=== PATIENT | female | born 1980 | race Caucasian/White ===

== ENCOUNTER 2024-01-16 15:17 | Outpatient (CLI) | payer OTHER, SELFPAY ==
--- NOTE | ~2024-01-16 | MM_ITS ---
EXAMINATION: MM screening santosh BI w kevin HISTORY: Screening TECHNIQUE: Craniocaudal and mediolateral oblique 3-D tomosynthesis images were obtained and synthetic 2-D images were generated. CAD analysis was submitted and interpreted. COMPARISON: No prior mammogram is available for comparison at this institution. BREAST PARENCHYMAL COMPOSITION: Dense: The breasts are extremely dense, which lowers the sensitivity of mammography. FINDINGS: There is no evidence of suspicious mass, calcification, or architectural distortion to sugg est malignancy in either breast. There has been no suspicious interval change. IMPRESSION: 1. No mammographic evidence of malignancy. 2. Recommend routine screening mammography in one year. BI-RADS Category 1: Negative Reviewed, dictated and finalized at location [facility]. [facility]
== END 2024-01-16 15:18 | disposition home or self-care (01) ==
LOC: ANHIMG 15:19
PROVIDERS: Visit Provider Obstetrics & Gynecology
DX: Z12.31 Encounter for screening mammogram for malignant neoplasm of breast (principal)
CPT/HCPCS: 77063; 77067

== ENCOUNTER 2025-01-20 10:46 | Outpatient (CLI) | payer OTHER, SELFPAY ==
--- OUTSIDE RECORDS SUMMARY | 2025-01-19 09:13 | XMS_ITS | Encounter Summary ---
Author Organization [facility] Address [address] [place] [address] Care Team Providers Care Opal Miner Name Role Phone [facility] Dur[facility] Primary Care Provider Reason for Visit * Evaluate & Treat (Routine) - Authorized Specialty Diagnoses / Procedures Referred By Contac t Referred To Contact Physical Therapy Diagnoses Impingement of right shoulder Rotator cuff tendonitis, right Laureano Avilez MD [address] [address] Phone: tel: fax: [facility] PT [address] [place] [address] Phone: tel: Referral ID Status Reason Start Date Expiration Date Visits Requested Visits Authorized [id number] Authorized Specialty Services Required 08/01/2024 08/01/2025 20 20 Encounter Details Date Type Department Care Team (Latest Contact Info) Description 01/19/2025 9:13 AM MRI TECHNICIAN - 01/19/2025 11:59 PM [facility] Hospital Encounter [facility] PT [address] [place] [address] Laureano Avilez MD [address] [phone] Colby Campuzano, PT Orthopedics Discharge Disposition: Home or Self Care Social History Tobacco Use Types Packs/Day Years Used Date Smoking Tobacco: Never Smokeless Tobacco: Never Alcohol Use Standard Drinks/Week Comments Never 0 (1 standard drink = 0.6 oz pur e alcohol) PHQ-2 Answer Date Recorded Patient Health Questionnaire-2 Score 6 10/07/2024 Education Answer Date Recorded What is the highest level of school you have completed or the highest degree you have received? Bachelor's degree (e.g., BA, AB, BS) 10/07/2024 Comments Unknown Sex and Gender Information Value Date Recorded Sex Assigned at Not on file Legal Sex Female 1:50 PM CDT Gender Identity Not on file Sexual Orientation Not on file Occupation Industry Job Start Date Job End Date unemployed Not on file Not on file Not on file documented as of this encounter Medications at Time of Discharge albuterol HFA (Proventil; Ventolin; Proair) 108 (90 Base) MCG/ACT inhaler Inhale 2 (two) puffs by mouth every 6 hours as needed 6.7 g 1 10/07/2024 Ascorbic Acid (Vitamin C) 500 MG azelastine (Astelin) 0.1 % nasal sprayIndications:A llergic rhinitis, unspecified seasonality, unspecified trigger [place] 1 (one) spray into each nostril 2 times daily as needed 30 mL 2 11/28/2024 B Complex-C (SUPER B COMPLEX PO) Super B Complex Calcium Carb-Cholecalcifer ol (Calcium 600+D) 600-10 MG-MCG Take 1 (one) tablet by mouth 2 times daily clindamycin (Cleocin) 1 % lotionIndications: Acne vulgaris Apply to affected area on face and trunk daily. 30 day supply. 60 mL 3 01/06/2025 fexofenadine (Belkis) 180 MG tabletIndications: Chronic urticaria Take 1 (one) tablet by mouth once daily 31 tablet 4 11/28/2024 fluticasone propionate (Flonase) 50 MCG/ACT nasal sprayIndications:A llergic rhinitis, unspecified seasonality, unspecified trigger,Nonallergi c vasomotor rhinitis [place] 2 (two) sprays into each nostril once daily 16 g 5 11/28/2024 hydrocortisone (Hytone) 2.5 % ointmentIndication s:Other eczema Apply to affected area 2 times daily 30 g 3 11/28/2024 lamoTRIgine (LaMICtal) 200 MG tablet 1 (one) tablet Lo Loestrin Fe 1 MG-10 MCG / 10 MCG tablet 09/05/2022 Magnesium Glycinate 100 MG CAPS minoxidil (Loniten) 2.5 MG tabletIndications: Female pattern hair loss Take one half of a pill daily. 90 day supply 45 tablet 3 01/06/2025 mometasone-formote rol (Dulera) 100-5 MCG/ACT inhalerIndications :Mild persistent asthma without complication (HCC) Inhale 2 (two) puffs by mouth as directed Use the Dulera 2 puffs twice a day regularly and 1 puffs as needed per the asthma action plan and before exertion up to 12 total puffs a day. The Dulera is both his controller and reliever inhaler (SMART Therapy) 8.8 g 2 11/28/2024 [place]-3 Krill Oil 500 MG propranolol (Inderal) 10 MG tablet Take 1 (one) tablet by mouth 2 times daily as needed 12/23/2024 QUEtiapine (SEROquel) 25 MG tablet TAKE 1 TABLET BY MOUTH ONCE DAILY AT BEDTIME NEEDED 12/23/2024 tretinoin (Retin-A) 0.025 % creamIndications:A cne vulgaris Pea sized amount to entire face at night. 30 days supply. 45 g 3 01/06/2025 Vraylar 1.5 MG capsule Take 1 (one) capsule by mouth at bedtime 10/21/2024 documented as of this encounter Progress Notes * Colby Campuzano, PT - 01/19/2025 9:36 AM CST [facility] Physical Medicine and Rehabilitation Outpatient Progress Note PATIENT NAME:Kathy Barajas DATE:01/19/2025 PROVIDER: [facility] - Orthopedics Cristi Frausto MD Mourad, Wassim, MD Diagnosis: Impingement of right shoulder [M25.811] - Primary Rotator cuff tendonitis, right [M75.81] Clinical Diagnosis: Pain, Tenderness, Decreased Rom, Strength, and Flexibility, Positive impingement tests, R shoulder. VISIT # 12 OF 17 (exp on 10/07) SUBJECTIVE: Pt continues to report increased pain in her R shoulder with reaching out to the side, backward and certain angles forward. Reports performing Hep with increased pain with the above motions; Reports difficulty putting deodorant on due to the pain and difficulty raising her arm. Patient voices pain level of 3 out of 10 at R shoulder. @ rest, 6-7 /10 with elevation In response to pain, therapy: provided education cold pack stretching OBJECTIVE: Tx: - Pt performed Upper body ergometer / arm bike with min resistance 3 mins Fwd, 3 mins Retro. - Pt reviewed / performed AArom on overhead pulleys for R shoulder flex and Scaption, 10 reps each,with cues. - Pt reviewed / performed self Prom / table stretches in sitting for R shoulder Flex and Scaption, 5-10 sec hold, 5 reps each, with cues, to be added to Hep; - Pt reviewed / performed wand AArom in supine for R shoulder Flex and ER / IR (90/90 position), 5 reps each with cues prn for hand placement to find the most comfortable position. - Interferential E-stim to R shoulder Hi/Low scan mode with intensity to tolerance (5-6) x 15 mins with Cpk in supine; Patient/Family Education Given: yes Pt advised to continue HEP, and PT, as tolerated and consult MDre:increased R shoulder pain and lack of progress in PT. Pt voiced understanding of all education provided; Need To Reassess: no ASSESSMENT/PROGRESS TOWARDS GOALS: Pt tolerated treatment with report of slightly decreased pain R shoulder post IFC / Cpk; Pt presents with increased pain and slightly decreased Rom and strength in her R shoulder. Pt advised to continue HEP, and PT, as tolerated and consult re:increased R shoulder pain and lack of progress in PT. Pt may benefit from further medical management in addition to continued PT for 5 authorized sessions remaining, per insurance; Response to treatment: good Plan: Cont PT 1x / week with Hep, per POC. Goals: Short Term Goals (to be met in 4 weeks) 1. Demonstrate improved posture and overhead body mechanics Met 2. Independent with home exercise program Met 3. Reports decreased pain level during functional activity of Reaching out to the side and backward 4. Increase shoulder range of motion: WFL Progressing 5. Increase shoulder strength: 1/3 MMT Grade 6. Increase scapular strength: 7. Other: 8. Other: Intermediate Goal: 1. At time of discharge, patient reports ability to return to functional activity of Lifting, Reaching, Driving, ADL's: Doing her hair, dressing, with decreased c/o; 2. Upon discharge, patient will show an improvement of 10 points on DASH. Treatment time: [id number] (Ex 2) [id number] (ESU,Cpk) TECHNICIAN documented in this encounter Plan of Treatment Upcoming Encounters Date Type Department Care Team (Late st Contact Info) Description 01/28/2025 9:30 AM MRI TECHNICIAN Appointment [facility] PT [address] [place] [phone] Laureano Avilez MD [address] [place] [phone] Colby Campuzano, PT 02/04/2025 9:30 AM MRI TECHNICIAN Appointment [facility] PT [address] [place] [phone] Laureano Avilez MD [address] [place] [phone] Colby Campuzano, PT 03/06/2025 11:00 AM MRI TECHNICIAN Office Visit [facility] - Allergy [address] [place] [address], [place] [phone] Jose Daniel Loya MD [address] [place] [address] 2L DIV OF ALLERGY/[place] [address] 03/13/2025 4:30 PM MRI TECHNICIAN Appointment [facility] MRI [address] [place] [phone] Susan Duran, SIDE SEAM ENVELOPE MACHINE OPERATOR-HANDLE ATTACHER [address] [place] [address] 2L DIV [place] [address] 07/16/2025 2:00 PM CDT Office Visit [facility] - Dermatology [address] [place] [address], [place] [phone] Judie Cote MD [address] [place] [address] 10/13/2025 10:30 AM CDT Office Visit [facility] - Internal Med [facility] [facility], [place] [address] Susan Duran APRN-MADELIN [address] [place] [address] 2L DIV OF [facility] [place] [address] 10/27/2025 9:00 AM CDT Office Visit [facility] - Ophthalmology [address] [place] [address], [place] [address] Daksha Montgomery OD [address] [place] [address] [address] [place] [phone] documented as of this encounter Visit Diagnoses Not on filedocumented in this encounter Care Teams Opal Miner Relationship Specialty Start Date End Date Susan Duran, GERMAINE-MADELIN [address] [place] [address] [address] DIV [place] [address] PCP - General Nurse Practitioner Family 10/25/22 documented as of this encounter
--- NOTE | ~2025-01-20 | MM_ITS ---
EXAMINATION: MM screening santosh BI w kevin HISTORY: Screening TECHNIQUE: Craniocaudal and mediolateral oblique 3-D tomosynthesis images were obtained and synthetic 2-D images were generated. CAD analysis was submitted and interpreted. COMPARISON: 01/16/2024 BREAST PARENCHYMAL COMPOSITION: Dense: The breasts are extremely dense, which lowers the sensitivity of mammography. FINDINGS: There is no evidence of suspicious mass, calcification, or architectural distortion to suggest malignancy in either breast. IMPRESSION: 1. No mammographic evidence of malignancy. 2. Recommend routine screening mammography in one year. BI-RADS Category 1: Negative Reviewed, dictated and finalized at location A. [facility]
--- OUTSIDE RECORDS SUMMARY | 2025-01-20 13:02 | XMS_ITS | Clinical Summary ---
Author Organization [facility] Address [address] [place] [address] Care Team Providers Care Olive Picker Name Role Phone Unavailable Primary Care Provider Unavailabl e Social History Tobacco Use Types Packs/Day Years Used Date Smoking Tobacco: Never Assessed Comments Unknown Sex and Gender Information Value Date Recorded Sex Assigned at Not on file Legal Sex Female 7:40 PM CDT Gender Identity Not on file Sexual Orientation Not on file Plan of Treatment Health Maintenance Due Date Last Done Comments Cervical Cancer Screening Pa p Smear (Age 30 to 64) Every 3 Years 1982 Annual Physical 1985 Hepatitis C 2000 DTaP, Tdap and Td Vaccines ( 1 - Tdap) 2001 Hepatitis B Vaccines (1 of 3 - 19+ 3-dose series) 2001 HPV Vaccines (1 - 3-dose SCD M series) 2009 Cervical Cancer Screening Pa p with HPV Testing (Age 30 to 64) Every 5 Years 2012 Cervical Cancer Screening with HPV 2012 Mammogram Screening 2022 COVID-19 Vaccine (2024-2 6 season) 2024 Influenza Adult (#1) 2024 Hepatitis A Vaccines Aged Out No long er eligible based on patient's age to complete this topic Meningococcal B Vaccine Aged Out No l onger eligible based on patient's age to complete this topic Meningococcal Vaccine Aged Out No meghan christina eligible based on patient's age to complete this topic Pneumococcal Vaccine: Pediat rics (0 to 5 Years) and At-Risk Patients (6 to 49 Years) Aged Out No longer eligible b ased on patient's age to complete this topic RSV Immunizations Under 20 Months Aged Out No longer eligible based on patient's age to complete this topic
--- OUTSIDE RECORDS SUMMARY | 2025-01-20 13:02 | XMS_ITS | Clinical Summary ---
Author Organization [facility] Address [address] [place] [address] Care Team Providers Care Taxicab Dispatcher Name Role Phone Susan Duran APRN-GARBAGE TRUCK DISPATCHER Primary Care Provider Source Comments [facility],non-owned Affiliates and Associated Physician Practices is amultiple site organization consisting of ambulatory clinics and hospital sitesin [place], [place], [place] and [place]. This disclosure is being madepursuant to the Care Everywhere program and may not contain all information available regarding this patient. Last updated 17.[facility] Allergies Active Allergy Reactions Criticality Noted Date Comments Diary Product [Other] Diarrhea,GI Discomfort Medium Penicillins Swelling,Anaphylaxis High 01/20/2014 Soybean Allergy Swelling 01/20/2014 Tomato Urticaria,Unknown Medium 01/20/2014 Medications * This document contains information received from the source organization and may not represent a complete record from that organization. * Be aware that medications may not be up to date on this document. Alwaysverify current medications with the patient. [place]-3 Krill Oil 500 MG Active Calcium Carb-Cholecalcif nathalie (Calcium 600+D) 600-10 MG-MCG Take 1 (one) tablet by mouth 2 times daily Active Ascorbic Acid (Vitamin C) 500 MG Active B Complex-C (SUPER B COMPLEX PO) Super B Complex Acti ve Magnesium Glycinate 100 MG CAPS Active Lo Loestrin Fe 1 MG-10 MCG / 10 MCG tablet 3 Active lamoTRIgine (LaMICtal) 200 MG tablet 1 (one) tablet Activ e albuterol HFA (Proventil; Ventolin; Proair) 108 (90 Base) MCG/ACT inhaler Inhale 2 (two) puffs by mouth every 6 hours as needed 6.7 g 1 5 Active Vraylar 1.5 MG capsule Take 1 (one) capsule by mouth at bedtime Active fluticasone propionate (Flonase) 50 MCG/ACT nasal sprayIndications :Allergic rhinitis, unspecified seasonality, unspecified trigger,Nonaller gic vasomotor rhinitis [place] 2 (two) sprays into each nostril once daily 16 g 5 5 Active Additional Information Patient not taking.Reported on 01/06/2025 azelastine (Astelin) 0.1 % nasal sprayIndications :Allergic rhinitis, unspecified seasonality, unspecified trigger [place]on 1 (one) spray into each nostril 2 times daily as needed 30 mL 2 Active Additional Information Patient not taking.Reported on 01/06/2025 hydrocortisone (Hytone) 2.5 % ointmentIndicati ons:Other eczema Apply to affected area 2 times daily 30 g 3 5 Active Additional Information Patient not taking.Reported on 01/06/2025 mometasone-formo terol (Dulera) 100-5 MCG/ACT inhalerIndicatio ns:Mild persistent asthma without complication (HCC) Inhale 2 (two) puffs by mouth as directed Use the Dulera 2 puffs twice a day regularly and 1 puffs as needed per the asthma action plan and before exertion up to 12 total puffs a day. The Dulera is both his controller and reliever inhaler (SMART Therapy) 8.8 g 2 5 Active Additional Information Patient not taking.Reported on 01/06/2025 fexofenadine (Belkis) 180 MG tabletIndication s:Chronic urticaria Take 1 (one) tablet by mouth once daily 31 tablet 4 5 Active Additional Information Patient not taking.Reported on 01/06/2025 propranolol (Inderal) 10 MG tablet Take 1 (one) tablet by mouth 2 times daily as needed Active QUEtiapine (SEROquel) 25 MG tablet TAKE 1 TABLET BY MOUTH ONCE DAILY AT BEDTIME NEEDED Active tretinoin (Retin-A) 0.025 % creamIndications :Acne vulgaris Pea sized amount to entire face at night. 30 days supply. 45 g 3 5 Active clindamycin (Cleocin) 1 % lotionIndication s:Acne vulgaris Apply to affected area on face and trunk daily. 30 day supply. 60 mL 3 5 Active minoxidil (Loniten) 2.5 MG tabletIndication s:Female pattern hair loss Take one half of a pill daily. 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 Establishing care with new doctor, encounter for 10/25/2022 Anxiety 10/25/2022 Recurrent major depressive disorder 10/25/2022 Vitamin D deficiency 09/05/2022 Endometriosis 12/01/2021 Asthma 12/19/2020 Overview (01/09/2025): exercise induced Exercise-induced asthma 12/19/2020 Encounters Date Type Department Care Team Description 01/19/2025 9:13 AM PROFESSOR OF FOOD BIOCHEMISTRY - 01/19/2025 11:59 PM [facility] Hospital Encounter [facility] PT [address] [place] [address] Laureano Avilez MD Tado, Mike, PT Orthopedics Discharge Disposition: Home or Self Care 01/06/2025 10:30 AM PROFESSOR OF FOOD BIOCHEMISTRY Office Visit [facility] - Dermatology [address] [facility] [address] [place] [address] Judie Cote MD Acne vulgaris (Primary Dx); Female pattern hair loss; Melanocytic nevi of trunk; Solar lentiginosis 01/06/2025 Travel 01/05/2025 9:22 AM PROFESSOR OF FOOD BIOCHEMISTRY - 01/05/2025 11:59 PM [facility] Hospital Encounter [facility] PT [address] [place] [address] Laureano Avilez MD Tado, Mike, PT Orthopedics Discharge Disposition: Home or Self Care 12/01/2024 10:30 AM CDT - 12/01/2024 11:59 PM CDT Hospital Encounter [facility] PT [address] [place] [address] Laureano Avilez MD Tado, Mike, PT Orthopedics Discharge Disposition: Home or Self Care 12/01/2024 Telephone [facility] - Allergy [address] [place] [phone] Remigio Castro MD Results 11/28/2024 1:20 PM CDT - 11/28/2024 11:59 PM CDT Hospital Encounter [facility] LAB OP DRAW STATION [address] [place] [phone] Discharge Disposition: Home or Self Care 11/28/2024 11:00 AM CDT Office Visit [facility] - Allergy [address] [place] [phone] Jose Daniel Loya MD Food allergy (Primary Dx); Anaphylaxis, initial encounter; Allergic rhinitis, unspecified seasonality, unspecified trigger; Mild persistent asthma without complication (HCC); Nonallergic vasomotor rhinitis; Chronic urticaria; Other eczema; History of penicillin allergy 11/28/2024 Travel 11/18/2024 Orders Only [facility] - Internal Med [address] [place] [phone] Susan Duran, ROOFER-GARBAGE TRUCK DISPATCHER Severe myopia of both eyes 11/18/2024 Telephone [facility] - Internal Med [address] [place] [phone] Susan Duran, ROOFER-GARBAGE TRUCK DISPATCHER Imaging 11/17/2024 10:30 AM CDT - 11/17/2024 11:59 PM CDT Hospital Encounter [facility] PT [address] [place] [address] Laureano Avilez MD Tado, Mike, PT Orthopedics Discharge Disposition: Home or Self Care 11/03/2024 10:24 AM CDT - 11/03/2024 11:59 PM CDT Hospital Encounter [facility] PT [address] [place] [address] Laureano Avilez MD Tado, Mike, PT Orthopedics Discharge Disposition: Home or Self Care 10/28/2024 8:30 AM CDT - 10/28/2024 11:59 PM CDT Hospital Encounter [facility] PT [address] [place] [address] Laureano Avilez MD Tado, Mike, PT Orthopedics Discharge Disposition: Home or Self Care 10/27/2024 9:30 AM CDT Office Visit [facility] - Ophthalmology [address] [facility], [place] [address] Daksha Montgomery, OD Severe myopia of both eyes (Primary Dx) 10/27/2024 Travel from Last 3 Months Immunizations Immunization Administration Dates Next Due COVID - 19, HISTORIC VACCINE 04/01/2020 Covid Pfizer primary monoval ent 12+ yr 0.3mL Purple cap 11/29/2020 DTaP VACCINE IM (6wk-6yrs) 06/18/1987,,05/06/1983,1982,1982 FLU VACCINE TRI IIV3 SPLIT I M (FLUVIRIN) 10/18/2020 HEP A PED/ADULT VACCINE 02/12/2001,07/17/2000 HEP A/HEP B 06/07/2022 HEP B VACCINE, PED/ADOL 02/12/2001,09/04/2000, Human Papilloma Virus Nineva lent Vaccine 06/07/2022 INFLUENZA VACCINE, QUADR. (F LUZONE; FLULAVAL; FLUARIX; AFLURIA QUADRIVALENT; 6MO+), 0.5 ML (IIV4) 10/24/2019,11/05/2017 MMR VACCINE 08/30/1992,05/28/1984 PNEUMOCOCCAL PCV20 CONJ VAC IM 06/07/2022 POLIO OPV 06/18/1987, 5,05/06/1983,1982,1982 TD (AGE 7-ADULT) 08/05/1996 TDAP (7yrs+) 06/14/2022 Family History Medical History Relation Name Comments Hyperlipidemia Father Hypertension Father Alcohol abuse Maternal Grandfather CAD (Coronary Artery Disease) Maternal Grandfather Cancer - Ovarian Maternal Grandmother Osteoporosis Maternal Grandmother Hyperlipidemia Mother Osteoporosis Mother Cancer - Breast Paternal Aunt x2 paternal aunt Alcohol abuse Paternal Grandfather Depression Paternal Grandmother mental health issue Relation Name Status Comments Father Maternal Grandfather Maternal Grandmother Mother Paternal Aunt Alive Paternal Grandfather Paternal Grandmother Social History Tobacco Use Types Packs/Day Years Used Date Smoking Tobacco: Never Smokeless Tobacco: Never Tobacco Cessation:Counseling Given: Not Answered Alcohol Use Standard Drinks/Week Comments Never 0 [...] file Not on file Not on file Last Filed Vital Signs Vital Sign Reading Time Taken Comments Blood Pressure 128/84 11/28/2024 11:34 AM CDT Pulse 78 11/28/2024 11:34 AM CDT Temperature 36.8 C (98.2 F) 11/28/2024 11:34 AM CDT Respiratory Rate 20 11/28/2024 11:34 AM CDT Oxygen Saturation 98% 11/28/2024 11:34 AM CDT Inhaled Oxygen Concentration - - Weight 54.4 kg (120 lb) 11/28/2024 11:34 AM CDT Height 162.6 cm (5' 4) 11/28/2024 11:34 AM CDT Body Mass Index 20.6 11/28/2024 11:34 AM CDT Plan of Treatment Upcoming Encounters Date Type Department Care Team (Late st Contact Info) Description 01/28/2025 9:30 AM PROFESSOR OF FOOD BIOCHEMISTRY Appointment [facility] PT [address] [place] [address] Laureano Avilez MD [address] [place] [phone] Colby Campuzano, PT 02/04/2025 9:30 AM PROFESSOR OF FOOD BIOCHEMISTRY Appointment [facility] PT [address] [place] [phone] Laureano Avilez MD [address] [phone] Colby Campuzano, PT 03/06/2025 11:00 AM PROFESSOR OF FOOD BIOCHEMISTRY Office Visit [facility] - Allergy [address] [place] [address], [place] [phone] Jose Daniel Loya MD [address] [place] [address] 2L DIV OF ALLERGY/[place] [address] 03/13/2025 4:30 PM PROFESSOR OF FOOD BIOCHEMISTRY Appointment [facility] MRI [address] [place] [phone] Susan Duran, ROOFER-GARBAGE TRUCK DISPATCHER [address] [place] [address] 2[address] DIV OF GEN [place] [address] 07/16/2025 2:00 PM CDT Office Visit [facility] - Dermatology [address] [place] [address], [place] [phone] Judie Cote MD [address] [place] [address] 10/13/2025 10:30 AM CDT Office Visit [facility] - Internal Med [address] [place] [address], [place] [phone] Susan Duran, ROOFER-GARBAGE TRUCK DISPATCHER [address] [place] [address] [address] DIV OF [place] [address] 10/27/2025 9:00 AM CDT Office Visit [facility] - Ophthalmology [address] [place] [address], [place] [phone] Daksha Montgomery, OD [address] [facility] [address] [place] [address] Health Maintenance Due Date Last Done Comments MAMMOGRAM 1982 HIV SCREENING 1997 HEPATITIS C SCREENING 09/29/2000 PAP SMEAR 10/05/2003 HPV VACCINE (2 - 3-dose SCDM series) 07/05/2022 06/07/2022 COVID-19 VACCINE (3 - season) 2024 10/17/2021, 11/29/2020 INFLUENZA VACCINE (#1) 2024 , 10/24/2019, 11/05/2017 LIPID TESTING 12/21/2027 12/20/2022 DTAP/TDAP/TD VACCINES (8 - Td or Tdap) 06/14/2032 06/14/2022, 08/05/1996, 06/18/1987, Additional history exists ZOSTER VACCINE (1 of 2) 2032 HEPATITIS B VACCINE Completed 06/07/2022, 02/12/2001, 09/04/2000, Additional history exists PNEUMOCOCCAL VACCINE Completed 06/07/2022 DEPRESSION SCREENING Completed 10/07/2024, 03/20/2023, 10/25/2022 HIB VACCINE Aged Out No longer eligi ble based on patient's age to complete this topic MENINGOCOCCAL (Group B) VACCINE SHARED DECISION-MAKING Aged Out No longer eligible based on patient's age to complete this topic MENINGOCOCCAL GROUPS A/C/Y/W VACCINE Aged Out No longer eligible based on patient's age to complete this topic Procedures Procedure Name Priority Date/Time Associated Diagnosis Comments IMMUNOSCORE IGE INTERP Routine 11/28/2024 1:53 PM CDT Food allergy IMMUNOSCORE IGE INTERP Routine 11/28/2024 1:53 PM CDT Chronic urticaria IMMUNOSCORE IGE INTERP Routine 11/28/2024 1:53 PM CDT Chronic urticaria LAB MISC TEST Routine 11/28/2024 1:53 PM CDT Food allergy ALLERGEN SHRIMP IGE Routine 11/28/2024 1 :53 PM CDT Food allergy ALLERGEN RESPIRATORY PNL REGION 8 ([place]) Routine 11/28/2024 1:53 PM CDT Chronic urticaria ALLERGEN SILVER BIRCH TREE IGE Routine 11/28/2024 1:53 PM CDT Chronic urticaria LIPID PROFILE Routine 12/20/2022 11:58 AM PROFESSOR OF FOOD BIOCHEMISTRY Chronic post-traumatic stress disorder (PTSD) from Last 3 Months or Most Recently Relevant to Health Maintenance Results * IMMUNOSCORE IGE INTERP (11/28/2024 1:53 PM CDT) Only the most recent of3 resultswithin the time period is included. [facility] Immunocap Score See Note 8:53 PM CDT [facility] [employer] ([facility]) Comment: REFERENCE INTERVAL: Allergen, Interpretation Less than 0.10 kU/L......Class 0.....No significant level detected 0.10-0.34 kU/L...........Class 0/1...Clinical relevance undetermined 0.35-0.70 kU/L...........Class 1.....Low 0.71-3.50 kU/L...........Class 2.....Moderate 3.51-17.50 kU/L..........Class 3.....High 17.51-50.00 kU/L.........Class 4.....Very High 50.01-100.00 kU/L........Class 5.....Very High Greater than 100.00kU/L..Class 6.....Very High Allergen results of 0.10-0.34 kU/L are intended for specialist use as the clinical relevance is undetermined. Even though increasing ranges are reflective of increasing concentrations of allergen-specific IgE, these concentrations may not correlate with the degree of clinical response or skin testing results when challenged with a specific allergen. The correlation of allergy laboratory results with clinical history and in vivo reactivity to specific allergens is essential. A negative test may not rule out clinical allergy or even anaphylaxis. Performed By: [facility] [address] [place] [address] Slide Machine Tender: Jose Fung MD, PhD CLIA Number: [id number] Blood BLOOD SPECIMEN / Unknown Lab Venipuncture / Unknown 11/28/2024 1:53 PM CDT 11/28/2024 2:10 PM CDT Jose Daniel Loya MD LAB - SEROLOGY ORDERABLES Final Result Performing Organization Address City/[facility]/ZIP Co de Phone Number [facility] ([facility]) [address] [place] [address] * ALLERGEN SILVER BIRCH TREE IGE (11/28/2024 1:53 PM CDT) Allergen Birch <0.10 <=0.34 kU/L 11/29/2024 10:51 PM CDT [facility] [employer] ([facility]) Comment: Performed By: [facility] [address] [place] [address] Slide Machine Tender: Jose Fung MD, PhD CLIA Number: [id number] Blood BLOOD SPECIMEN / Unknown Lab Venipuncture / Unknown 11/28/2024 1:53 PM CDT 11/28/2024 2:10 PM CDT Jose Daniel Loay MD LAB - SEROLOGY ORDERABLES Final Result Performing Organization Address [facility]/ZIP Co de Phone Number [facility]) [address] [place] [address] * LAB MISC TEST (11/28/2024 1:53 PM CDT) Test Name ALLERGEN TOMATO IGE 12/01/2024 12:46 PM CDT [facility] Test Result See Scanned Report 12/01/2024 12:46 PM CDT [facility] Comment Ref Lab [place] 12/01/2024 12:46 PM CDT [facility] Blood BLOOD SPECIMEN / Unknown Lab Venipuncture / Unknown 11/28/2024 1:53 PM CDT 11/28/2024 2:10 PM CDT Jose Daniel Loya MD LAB SEND OUT Final Result Performing Organization Address [facility] [place] [address] * ALLERGEN SHRIMP IGE (11/28/2024 1:53 PM CDT) Allergen Shrimp <0.10 <=0.34 kU/L 11/30/2024 8:51 PM CDT [facility] [employer] ([facility]) Comment: Performed By: [facility] [employer] [address] [place] [address] Slide Machine Tender: Jose Fung MD, PhD CLIA Number: [id number] Blood BLOOD SPECIMEN / Unknown Lab Venipuncture / Unknown 11/28/2024 1:53 PM CDT 11/28/2024 2:10 PM CDT Jose Daniel Loya MD LAB - CHEMISTRY ORDERABLES Marla l Result Performing Organization Address [facility] de Phone Number [facility]) [address] [place] [address] * ALLERGEN RESPIRATORY PNL REGION 8 ([place]) (11/28/2024 1:53 PM CDT) IgE Total 4 <=214 kU/L 11/29/2024 10:52 PM CDT [facility] [employer] ([facility]) Comment: REFERENCE INTERVAL: Immunoglobulin E, Serum Access complete set of age- and/or gender-specific reference intervals for this test in the [facility] Test Directory (Impact [employer]). Allergen Rueda Elder <0.10 <=0.34 kU/L 11/29/2024 10:52 PM CDT [facility] [employer] ([facility]) Allergen Alternaria alternata <0.10 <=0.34 kU/L 11/29/2024 10:52 PM CDT [facility] ([facility]) Allergen [place] Maple <0.10 <=0.34 kU/L 11/29/2024 10:52 PM CDT [facility] ([facility]) Allergen Cat Dander <0.10 <=0.34 kU/L 11/29/2024 10:52 PM CDT [facility] ([facility]) Allergen Mountain Woodridge <0.10 <=0.34 kU/L 11/29/2024 10:52 PM CDT [facility] ([facility]) Allergen [place] Tree <0.10 <=0.34 kU/L 11/29/2024 10:52 PM CDT [facility] ([facility]) Allergen Rough Pigweed <0.10 <=0.34 kU/L 11/29/2024 10:52 PM CDT [facility] ([facility]) Allergen Bhutanese Thistle <0.10 <=0.34 kU/L 11/29/2024 10:52 PM CDT [facility] ([facility]) Allergen Miles Grass <0.10 <=0.34 kU/L 11/29/2024 10:52 PM CDT [facility] ([facility]) Allergen Hormodendrum <0.10 <=0.34 kU/L 11/29/2024 10:52 PM CDT [facility] ([facility]) Allergen Elm <0.10 <=0.34 kU/L 11/29/2024 10:52 PM CDT [facility] ([facility]) Allergen Freeport <0.10 <=0.34 kU/L 11/29/2024 10:52 PM CDT [facility] ([facility]) Allergen A fumigatus IgE <0.10 <=0.34 kU/L 11/29/2024 10:52 PM CDT [facility] ([facility]) Allergen Dermatophagoides pteronyssinus <0.10 <=0.34 kU/L 11/29/2024 10:52 PM CDT [facility] ([facility]) Allergen Dermatophagoides farinae <0.10 <=0.34 kU/L 11/29/2024 10:52 PM CDT [facility] ([facility]) Allergen Bermuda Grass <0.10 <=0.34 kU/L 11/29/2024 10:52 PM CDT [facility] ([facility]) Allergen White Will <0.10 <=0.34 kU/L 11/29/2024 10:52 PM CDT [facility] ([facility]) Allergen P. Notatum <0.10 <=0.34 kU/L 11/29/2024 10:52 PM CDT [facility] ([facility]) Allergen Common Ragweed <0.10 <=0.34 kU/L 11/29/2024 10:52 PM CDT [facility] ([facility]) Allergen Cockroach Uzbek <0.10 <=0.34 kU/L 11/29/2024 10:52 PM CDT [facility] ([facility]) Allergen Th[place] Tree <0.10 <=0.34 kU/L 11/29/2024 10:52 PM CDT [facility] ([facility]) Allergen Clark Tree <0.10 <=0.34 kU/L 11/29/2024 10:52 PM CDT [facility] ([facility]) Allergen Pecan Tree <0.10 <=0.34 kU/L 11/29/2024 10:52 PM CDT [facility] ([facility]) Allergen Mouse Epithelium IgE <0.10 <=0.34 kU/L 11/29/2024 10:52 PM CDT [facility] ([facility]) Allergen Mucor racemosus <0.10 <=0.34 kU/L 11/29/2024 10:52 PM CDT [facility] ([facility]) Allergen White Ochelata Tree IgE <0.10 <=0.34 kU/L 11/29/2024 10:52 PM CDT [facility] ([facility]) Allergen Dog Dander <0.10 <=0.34 kU/L 11/29/2024 10:52 PM CDT [facility] ([facility]) Comment: Performed By: [facility] [address] [place] [id number] Slide Machine Tender: Jose Fung MD, PhD CLIA Number: [id number] Blood BLOOD SPECIMEN / Unknown Lab Venipuncture / Unknown 11/28/2024 1:53 PM CDT 11/28/2024 2:10 PM CDT us Jose Daniel Loya MD LAB - CHEMISTRY ORDERABLES Marla l Result [facility] ([facility]) [address] [place] [address], [facility] * (ABNORMAL) LIPID PROFILE (12/20/2022 11:58 AM PROFESSOR OF FOOD BIOCHEMISTRY) Cholesterol Total 189 <200 mg/dL 12/20/2022 12:51 PM [facility] HDL 59 >40 mg/dL 12/20/2022 12:51 PM [facility] Comment: ATP III Classification of HDL Cholesterol: <40 mg/dL: Considered a major risk factor. >60 mg/dL: Considered a negative risk factor. LDL Calculated 114(H) <100 mg/dL 12/20/2022 12:51 PM [facility] Comment: ATP III Classification of LDL Cholesterol: <100 mg/dL: Optimal 100 - 129 mg/dL: Near Optimal/Above Optimal 130 - 159 mg/dL: Borderline High 160 - 189 mg/dL: High >190 mg/dL: Very High Triglycerides 80 <150 mg/dL 12/20/2022 12:51 PM [facility] Comment: ATP III Classification of Triglycerides: <150 mg/dL: Normal 150 - 199 mg/dL: Borderline High 200 - 400 mg/dL: High >500 mg/dL: Very High Blood BLOOD SPECIMEN / Unknown Lab Venipuncture / Unknown 12/20/2022 11:58 AM PROFESSOR OF FOOD BIOCHEMISTRY 12/20/2022 12:21 PM PROFESSOR OF FOOD BIOCHEMISTRY Paloma Lion MD LAB - CHEMISTRY ORDERABLES Fin al Result [facility] [address] [place] [address], [place] [phone] from Last 3 Months or Most Recently Relevant to Health Maintenance Insurance [facility] [place] [address] [facility] Care Teams Taxicab Dispatcher Relationship Specialty Start Date End Date Susan Duran, ROOFER-GARBAGE TRUCK DISPATCHER [address] [place] [address] PCP - General Nurse Practitioner Family 10/25/22
--- OUTSIDE RECORDS SUMMARY | 2025-01-20 13:02 | XMS_ITS | Patient Health Record ---
Author Organization [facility] Address [address] [place] [address] Phone [phone] Care Team Providers Care Structural Welder Name Role Phone Suyapa Peña Primary Care Provider [phone] Val Lal Allergies Allergen (clinical drug ingredient) Drug/Non Drug Allergy documented on EMR Reaction Allergy Type Onset Date Status dairy (uncoded) stomach upset Allergy Active Soybean anaphylaxis Drug Allergy Activ e Penicillin anaphylaxis Drug Allergy Acti ve Tomatoes anaphylaxis Allergy Active Results Component Value Reference Range Flag Notes CMP 14 Comprehensive Metabol ic Panel* Order date: 06/11/2024 Reviewed date:07/02/2024 07:36:26 AM Interpretation: Performing Lab:[facility] [address] [facility], Phone - [phone], Director - Viviane Notes/Report: Glucose 86 70-99 mg/dL BUN 13 6-24 mg/dL Creatinine 1.07 0.57-1.00 mg/dL H eGFR 67 >59 mL/min/1.73 BUN/Creatinine Ratio 12 9-23 Sodium 137 134-144 mmol/L Potassium 4.7 3.5-5.2 mmol/L Chloride 102 96-106 mmol/L Carbon Dioxide, Total 19 20-29 mmol/L L Calcium 9.7 8.7-10.2 mg/dL Protein, Total 6.8 6.0-8.5 g/dL Albumin 4.7 3.9-4.9 g/dL Globulin, Total 2.1 1.5-4.5 g/dL Bilirubin, Total 0.5 0.0-1.2 mg/dL Alkaline Phosphatase 67 44-121 IU/L AST (SGOT) 21 0-40 IU/L ALT (SGPT) 19 0-32 IU/L Lipid Panel* Order date: 06/11/2024 Reviewed date:07/02/2024 07:37:46 AM Interpretation: Performing Lab:[facility], Phone - [phone], Director - [facility] Notes/Report: Cholesterol, Total 239 100-199 mg/dL H Triglycerides 180 0-149 mg/dL H HDL Cholesterol 66 >39 mg/dL VLDL Cholesterol Kian 32 5-40 mg/dL LDL Chol Calc (NIH) 141 0-99 mg/dL H TSH+Free T4* Order date: 06/11/2024 Reviewed date:07/02/2024 07:37:56 AM Interpretation: Performing Lab[facility] [address] [place] [address], Phone - [phone], Director - [facility] Notes/Report: TSH 4.690 0.450-4.500 uIU/mL H T4,Free(Direct) 1.12 0.82-1.77 ng/dL Vitamin D, 25-Hydroxy* Order date: 06/11/2024 Reviewed date:07/02/2024 07:38:18 AM Interpretation: Performing Lab:[facility], [address] [place] [address], Phone - [phone], Director - [facility] Notes/Report: Vitamin D, 25-Hydroxy 61.8 30.0-100.0 ng/mL Vitamin D deficiency has been defined by the [employer] of Medicine and an Endocrine Society practice guideline as a level of serum 25-OH vitamin D less than 20 ng/mL (1,2). The Endocrine Society went on to further define vitamin D insufficiency as a level between 21 and 29 ng/mL (2). 1. IOM (Watson of Medicine). 2010. Dietary reference intakes for calcium and D. [place]: The National Academies Press. 2. Megan MF, Shauna NC, Evita WOODS, et al. Evaluation, treatment, and prevention of vitamin D deficiency: an Endocrine Society clinical practice guideline. JCEM. 2010; 96(5):8911-30. CBC With Differential/Platel et* Order date: 06/11/2024 Reviewed date:07/02/2024 07:37:09 AM Interpretation: Performing Lab:[facility], Phone - [phone], Director - Viviane Notes/Report: WBC 6.1 3.4-10.8 x10E3/uL RBC 4.74 3.77-5.28 x10E6/uL Hemoglobin 14.2 11.1-15.9 g/dL Hematocrit 44.5 34.0-46.6 % MCV 94 79-97 fL MCH 30.0 26.6-33.0 pg MCHC 31.9 31.5-35.7 g/dL RDW 12.2 11.7-15.4 % Platelets 289 150-450 x10E3/uL Neutrophils 53 Not Estab. % Lymphs 40 Not Estab. % Monocytes 5 Not Estab. % Eos 1 Not Estab. % Basos 1 Not Estab. % Neutrophils (Absolute) 3.2 1.4-7.0 x10E3/uL Lymphs (Absolute) 2.4 0.7-3.1 x10E3/uL Monocytes(Absolute) 0.3 0.1-0.9 x10E3/uL Eos (Absolute) 0.0 0.0-0.4 x10E3/uL Baso (Absolute) 0.0 0.0-0.2 x10E3/uL Immature Granulocytes 0 Not Estab. % Immature Grans (Abs) 0.0 0.0-0.1 x10E3/uL Vitamin B12* Order date: 06/11/2024 Reviewed date:07/02/2024 07:37:28 AM Interpretation: Performing Lab:[facility] [address] [facility], Phone - [phone], Director - Viviane Notes/Report: Vitamin B12 299 677-7602 pg/mL Hemoglobin A1c* Order date: 06/11/2024 Reviewed date:07/02/2024 07:37:19 AM Interpretation: Performing Lab:[facility], [address] [facility], Phone - [phone], Director - Viviane Notes/Report: Hemoglobin A1c 5.4 4.8-5.6 % . Prediabetes: 5.7 - 6.4 Diabetes: >6.4 Glycemic control for adults with diabetes: <7.0 Reason For Referral No Information Medications Medication SIG (Take, Route, Frequency, Duration) Notes Start Date End Date Diagnosis (ICD Code) Status QUEtiapine Fumarate 25 MG Tablet 1 tablet at bedtime Orally Once a day; Duration: 30 days As needed Mood disorder (ICD_10 - F39) Active Propranolol HCl 10 MG Tablet 1 tablet Orally twice a day; Duration: 30 days As needed MAKAYLA (generalized anxiety disorder) (ICD_10 - F41.1) Active lamoTRIgine 25 MG Tablet 1 tablet with 100 mg tablet Orally twice a day; Duration: 14 days 01/13/2025 Mood disorder (ICD_10 - F39) Active LaMICtal 100 MG Tablet 1 tablet with 25 mg tablet Orally Twice a day; Duration: 14 days stop taking if rash occurs Mood disorder (ICD_10 - F39) Active Magnesium - Capsule as directed Orally Active Meloxicam 15 MG Tablet 1 tablet Orally Once a day Active Loestrin 120 (21) 1-20 MG-MCG Tablet 1 tablet Orally Once a day Active Social History Sex Observation Social History Observation Description Sex Observation Female Social History Primary Social History Social Info Question Answer Notes Living Arrangement Living Arrangement: Independent Bridget ing Live with relatives Is this a supportive environment? Yes Employment Status Employment Status: Unemployed Illicit Substance Usage Illicit Substance Usage: No Alcohol Use Alcohol Use Frequency: Never Problems Problem Type SNOMED Code ICD Code Dates Problem Status W/U Status Risk Notes Problem Mood disorder (04349109) Mood disorder (F39) Added On:11/07 Active confirmed The differential diagnosis includes but is not limited to: Bipolar 2 vs BPD (patient's therapist believes she has DID) Problem Posttraumatic stress disorder (19437385) PTSD (post-traumat ic stress disorder) (F43.10) Added On:11/05 Active confirmed Problem Anxiety (46206210) Anxiety (F41.9) Added On:11/05 Active confirmed Problem Generalized anxiety disorder (12658410) MAKAYLA (generalized anxiety disorder) (F41.1) Added On:12/06 Active confirmed Problem Panic attack (705139262) Panic attack (F41.0) Added On:11/05 Active confirmed Problem Recurrent major depression (27371874) MDD (major depressive disorder), recurrent episode (F33.9) Added On:08/07 Active confirmed Problem Major depression, single episode (75532059) Treatment-res istant depression (F32.9) Added On:08/07 Active confirmed Vital Signs Vital Sign Value Notes Appt Date Weight 125 lbs 10/30/2024 Encounters Date Time Type Facility Location Provider Diagnosis 02/04/20 01:00 PM Telehealth Office Visit, Est Pt., Level 3 ([id number]) [address] [address] Suyapa Mariana Depression F32.9 ; Mood disorder F39 ; MAKAYLA (generalized anxiety disorder) F41.1 and PTSD (post-traumati c stress disorder) F43.10 02/17/19 01:00 PM Telehealth Office Visit, Est Pt., Level 3 (99839) [address] [address] Suyapa Mariana Depression F32.9 ; Mood disorder F39 ; MAKAYLA (generalized anxiety disorder) F41.1 and PTSD (post-traumati c stress disorder) F43.10 03/17/19 25 01:00 PM Telehealth Office Visit, Est Pt., Level 3 (25775) [address] [address] Suyapa Mariana Depression F32.9 ; Mood disorder F39 ; MAKAYLA (generalized anxiety disorder) F41.1 and PTSD (post-traumati c stress disorder) F43.10 06/12/19 25 04:00 PM Telehealth Office Visit, Est Pt., Level 3 (86760) [address] [address] Suyapa Mariana Depression F32.9 ; Mood disorder F39 ; MAKAYLA (generalized anxiety disorder) F41.1 ; PTSD (post-traumati c stress disorder) F43.10 and Therapeutic drug monitoring Z51.81 07/09/19 25 02:00 PM Telehealth Office Visit, Est Pt., Level 3 (29829) [address] [address] Suyapa Mariana Depression F32.9 ; Mood disorder F39 ; MAKAYLA (generalized anxiety disorder) F41.1 and PTSD (post-traumati c stress disorder) F43.10 08/14/19 04:00 PM Telehealth Office Visit, Est Pt., Level 3 (04180) [address] [address] Suyapa Mariana Depression F32.9 ; Mood disorder F39 ; MAKAYLA (generalized anxiety disorder) F41.1 and PTSD (post-traumati c stress disorder) F43.10 09/04/19 11:00 AM Telehealth Office Visit, Est Pt., Level 3 (27464) [address] [address] Suyapa Mariana Mood disorder F39 ; Treatment-resi stant depression F32.9 ; MAKAYLA (generalized anxiety disorder) F41.1 ; PTSD (post-traumati c stress disorder) F43.10 and MDD (major depressive disorder), recurrent episode F33.9 10/22/19 10:40 AM Telehealth Office Visit, Est Pt., Level 3 (11296) [address] [address] Suyapa Mariana Mood disorder F39 ; Treatment-resi stant depression F32.9 ; MAKAYLA (generalized anxiety disorder) F41.1 ; PTSD (post-traumati c stress disorder) F43.10 and MDD (major depressive disorder), recurrent episode F33.9 10/31/19 10:40 AM Telehealth Office Visit, Est Pt., Level 3 (15130) [address] [address] Suyapa Mariana Mood disorder F39 ; Treatment-resi stant depression F32.9 ; MAKAYLA (generalized anxiety disorder) F41.1 ; PTSD (post-traumati c stress disorder) F43.10 and MDD (major depressive disorder), recurrent episode F33.9 11/19/19 09:00 AM Telehealth Office Visit, Est Pt., Level 3 (80354) [address] [address] Suyapa Mariana Mood disorder F39 ; Treatment-resi stant depression F32.9 ; MAKAYLA (generalized anxiety disorder) F41.1 ; PTSD (post-traumati c stress disorder) F43.10 and MDD (major depressive disorder), recurrent episode F33.9 12/24/19 10:40 AM Telehealth Office Visit, Est Pt., Level 3 (53158) [address] [address] Suyapa Mariana Mood disorder F39 ; Treatment-resi stant depression F32.9 ; MAKAYLA (generalized anxiety disorder) F41.1 ; PTSD (post-traumati c stress disorder) F43.10 and MDD (major depressive disorder), recurrent episode F33.9 01/14/20 09:00 AM Telehealth Office Visit, Est Pt., Level 3 (22543) [address] [address] Suyapa Mariana Mood disorder F39 ; Treatment-resi stant depression F32.9 ; MAKAYLA (generalized anxiety disorder) F41.1 ; PTSD (post-traumati c stress disorder) F43.10 and MDD (major depressive disorder), recurrent episode F33.9 02/06/19 25 10:05 AM Telephone Encounter [address] [address] Suyapa Mariana Mood disorder F39 02/06/19 11:47 AM Telephone Encounter [address] [address] Val Lal 02/17/19 01:15 PM Telephone Encounter [address] [address] Suyapa Mariana Mood disorder F39 10/04/19 09:39 AM Telephone Encounter [address] [place] [address] Suyapa Mariana Mood disorder F39 and Treatment-resi stant depression F32.9 10/04/19 09:43 AM Telephone Encounter [facility] [address] [place] [address] Suyapa Mariana 12/17/19 07:34 AM Telephone Encounter [facility] [address] [place] [address] Suyapa Mariana Mood disorder F39 and Treatment-resi stant depression F32.9 Assessments Encounter Date Diagnosis (ICD Code) Assessment Notes Treatment Notes Section Notes 02/04/2024 Depression (ICD-10 - F32.9) 02/18/2024 Depression (ICD-10 - F32.9) 03/17/2024 Depression (ICD-10 - F32.9) 06/11/2024 Depression (ICD-10 - F32.9) 07/08/2024 Depression (ICD-10 - F32.9) 08/13/2024 Depression (ICD-10 - F32.9) 02/07/2024 Mood disorder (ICD-10 - F39) 12/23/2024 Mood disorder (ICD-10 - F39) The differential diagnosis includes but is not limited to: Bipolar 2 vs BPD (patient's therapist believes she has DID) 01/13/2025 Mood disorder (ICD-10 - F39) The differential diagnosis includes but is not limited to: Bipolar 2 vs BPD (patient's therapist believes she has DID) 09/03/2024 Mood disorder (ICD-10 - F39) The differential diagnosis includes but is not limited to: Bipolar 2 vs BPD (patient's therapist believes she has DID) 10/03/2024 Mood disorder (ICD-10 - F39) The differential diagnosis includes but is not limited to: Bipolar 2 vs BPD (patient's therapist believes she has DID) 10/21/2024 Mood disorder (ICD-10 - F39) The differential diagnosis includes but is not limited to: Bipolar 2 vs BPD (patient's therapist believes she has DID) 10/30/2024 Mood disorder (ICD-10 - F39) The differential diagnosis includes but is not limited to: Bipolar 2 vs BPD (patient's therapist believes she has DID) Restart Quetiapine. Take as prescribed. Reviewed purpose (mood stability), benefits, and risks - low blood pressure, metabolic syndrome with high cholesterol or high blood sugars, change in cardiac conduction, nausea, vomiting, temporary or permanent movement disorders, and akathisia. For females: explained that no medication can be guaranteed to be 100% safe for baby or mother. Call for problems with medication, side effects or need for dosage change. 11/18/2024 Mood disorder (ICD-10 - F39) The differential diagnosis includes but is not limited to: Bipolar 2 vs BPD (patient's therapist believes she has DID) 12/16/2024 Mood disorder (ICD-10 - F39) The differential diagnosis includes but is not limited to: Bipolar 2 vs BPD (patient's therapist believes she has DID) 02/18/2024 Mood disorder (ICD-10 - F39) 10/21/2024 Treatment-resista nt depression (ICD-10 - F32.9) Start Vraylar. Take as prescribed. Reviewed purpose (mood stability), benefits, and risks - low blood pressure, metabolic syndrome with high cholesterol or high blood sugars, change in cardiac conduction, nausea, vomiting, temporary or permanent movement disorders, and akathisia. For females: explained that no medication can be guaranteed to be 100% safe for baby or mother. Call for problems with medication, side effects or need for dosage change. 09/03/2024 Treatment-resista nt depression (ICD-10 - F32.9) Start Rexulti. Take as prescribed. Reviewed purpose (mood stability), benefits, and risks - low blood pressure, metabolic syndrome with high cholesterol or high blood sugars, change in cardiac conduction, nausea, vomiting, temporary or permanent movement disorders, and akathisia. For females: explained that no medication can be guaranteed to be 100% safe for baby or mother. Call for problems with medication, side effects or need for dosage change. 10/03/2024 Treatment-resista nt depression (ICD-10 - F32.9) 10/30/2024 Treatment-resista nt depression (ICD-10 - F32.9) 11/18/2024 Treatment-resista nt depression (ICD-10 - F32.9) 12/16/2024 Treatment-resista nt depression (ICD-10 - F32.9) 12/23/2024 Treatment-resista nt depression (ICD-10 - F32.9) 01/13/2025 Treatment-resista nt depression (ICD-10 - F32.9) 02/04/2024 Mood disorder (ICD-10 - F39) Continue Lamotrigine as prescribed. Reviewed purpose (mood stability, reduce depression, and help with irritability), benefits, and risks - including sedation, nausea, rash - benign or serious. A serious rash could cause shedding of all skin and even become fatal. Stop taking medication immediately if a rash occurs and seek emergency care. Notify our office as well. If you ever miss 4 or more consecutive days of taking this medication, please let the office know. The prescriber may need to restart this medication at 25 mg daily and titrate up as tolerated. Call for problems with medication, side effects or need for dosage change. Continue Quetiapine. Take as prescribed. Reviewed purpose (mood stability), benefits, and risks - low blood pressure, metabolic syndrome with high cholesterol or high blood sugars, change in cardiac conduction, nausea, vomiting, temporary or permanent movement disorders, and akathisia. Explained that no medication can be guaranteed to be 100% safe for baby or mother. Call for problems with medication, side effects or need for dosage change. 09/03/2024 MAKAYLA (generalized anxiety disorder) (ICD-10 - F41.1) Begin propranolol. Take as prescribed. Reviewed purpose (decrease anxiety and panic attacks), benefits, and risks - including low pulse rate, low blood pressure, sexual dysfunction, wheezing/asthma attack, weight gain, increased blood sugar, and sedation. Call for problems with medication, side effects or need for dosage change. 10/21/2024 MAKAYLA (generalized anxiety disorder) (ICD-10 - F41.1) 03/17/2024 Mood disorder (ICD-10 - F39) Continue Lamotrigine as prescribed. Reviewed purpose (mood stability, reduce depression, and help with irritability), benefits, and risks - including sedation, nausea, rash - benign or serious. A serious rash could cause shedding of all skin and even become fatal. Stop taking medication immediately if a rash occurs and seek emergency care. Notify our office as well. If you ever miss 4 or more consecutive days of taking this medication, please let the office know. The prescriber may need to restart this medication at 25 mg daily and titrate up as tolerated. Call for problems with medication, side effects or need for dosage change. Continue Quetiapine. Take as prescribed. Reviewed purpose (mood stability), benefits, and risks - low blood pressure, metabolic syndrome with high cholesterol or high blood sugars, change in cardiac conduction, nausea, vomiting, temporary or permanent movement disorders, and akathisia. Explained that no medication can be guaranteed to be 100% safe for baby or mother. Call for problems with medication, side effects or need for dosage change. 06/11/2024 Mood disorder (ICD-10 - F39) 07/08/2024 Mood disorder (ICD-10 - F39) 08/13/2024 Mood disorder (ICD-10 - F39) 02/18/2024 Mood disorder (ICD-10 - F39) Continue Lamotrigine as prescribed. Reviewed purpose (mood stability, reduce depression, and help with irritability), benefits, and risks - including sedation, nausea, rash - benign or serious. A serious rash could cause shedding of all skin and even become fatal. Stop taking medication immediately if a rash occurs and seek emergency care. Notify our office as well. If you ever miss 4 or more consecutive days of taking this medication, please let the office know. The prescriber may need to restart this medication at 25 mg daily and titrate up as tolerated. Call for problems with medication, side effects or need for dosage change. Increase Quetiapine. Take as prescribed. Reviewed purpose (mood stability), benefits, and risks - low blood pressure, metabolic syndrome with high cholesterol or high blood sugars, change in cardiac conduction, nausea, vomiting, temporary or permanent movement disorders, and akathisia. Explained that no medication can be guaranteed to be 100% safe for baby or mother. Call for problems with medication, side effects or need for dosage change. 10/30/2024 MAKAYLA (generalized anxiety disorder) (ICD-10 - F41.1) 02/04/2024 MAKAYLA (generalized anxiety disorder) (ICD-10 - F41.1) 02/18/2024 MAKAYLA (generalized anxiety disorder) (ICD-10 - F41.1) 03/17/2024 MAKAYLA (generalized anxiety disorder) (ICD-10 - F41.1) 11/18/2024 MAKAYLA (generalized anxiety disorder) (ICD-10 - F41.1) 12/23/2024 MAKAYLA (generalized anxiety disorder) (ICD-10 - F41.1) 01/13/2025 MAKAYLA (generalized anxiety disorder) (ICD-10 - F41.1) 06/11/2024 MAKAYLA (generalized anxiety disorder) (ICD-10 - F41.1) 07/08/2024 MAKAYLA (generalized anxiety disorder) (ICD-10 - F41.1) 08/13/2024 MAKAYLA (generalized anxiety disorder) (ICD-10 - F41.1) 09/03/2024 PTSD (post-traumatic stress disorder) (ICD-10 - F43.10) 10/21/2024 PTSD (post-traumatic stress disorder) (ICD-10 - F43.10) 09/03/2024 MDD (major depressive disorder), recurrent episode (ICD-10 - F33.9) 10/21/2024 MDD (major depressive disorder), recurrent episode (ICD-10 - F33.9) 02/04/2024 PTSD (post-traumatic stress disorder) (ICD-10 - F43.10) 02/18/2024 PTSD (post-traumatic stress disorder) (ICD-10 - F43.10) 10/30/2024 PTSD (post-traumatic stress disorder) (ICD-10 - F43.10) 11/18/2024 PTSD (post-traumatic stress disorder) (ICD-10 - F43.10) 12/23/2024 PTSD (post-traumatic stress disorder) (ICD-10 - F43.10) 01/13/2025 PTSD (post-traumatic stress disorder) (ICD-10 - F43.10) 03/17/2024 PTSD (post-traumatic stress disorder) (ICD-10 - F43.10) 06/11/2024 PTSD (post-traumatic stress disorder) (ICD-10 - F43.10) 07/08/2024 PTSD (post-traumatic stress disorder) (ICD-10 - F43.10) 08/13/2024 PTSD (post-traumatic stress disorder) (ICD-10 - F43.10) 10/30/2024 MDD (major depressive disorder), recurrent episode (ICD-10 - F33.9) 11/18/2024 MDD (major depressive disorder), recurrent episode (ICD-10 - F33.9) 12/23/2024 MDD (major depressive disorder), recurrent episode (ICD-10 - F33.9) 01/13/2025 MDD (major depressive disorder), recurrent episode (ICD-10 - F33.9) 06/11/2024 Therapeutic drug monitoring (ICD-10 - Z51.81) 02/04/2024 Other May self-administer medications or be administered own oral medications per [place] protocols. Provided informed consent with understanding of side effects, adverse effects, risks and benefits as well as alternative treatments as previously discussed and with the above recommended medications & other aspects of the treatment program. Agrees to return sooner if symptoms worsen or suicidal or homicidal ideations occur. Unable to complete AIMS due to nature of appt, denies any irregular muscle movements; would benefit from an in person appointment. Plan: -Continue Lamictal 100 mg once daily -Start taking Quetiapine 25 mg daily (QHS) *no refills needed at this time -Follow up: 2 weeks [] Hard Rx handed to patient [] Rx phoned into pharmacy [] Rx faxed/e-prescribed into pharmacy [x] PDMP Reviewed [] [facility] Reviewed Encouraged by Suyapa LOPEZP-BC to: [] consider utilizing therapist/counselor/so cial worker/psychologist, referral given [x] continue with therapist/counselor/so cial worker/psychologist Psychoeducation: -Treatment options discussed in detail with patient/guardian verbalizing understanding of treatment rationales. -Side effects and benefits of all medications prescribed discussed at length between psychiatric prescribing provider and patient/guardian along with the risks associated of [id number] interactions, including but not limited to prescription medications, OTC medications, vitamins, minerals and herbal supplements. -Patient/Guardian and provider dialogue showcased verbalized understanding from patient on rationales of medication risk vs benefits. 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 -Reduction of stress and anxiety to aid in focus and concentration discussed, again, with patient/guardian physically nodding, voicing understanding, and engaged in treatment plan with Suyapa LOPEZP-BC. -Perceiving complete understanding of rationale by patient/guardian and willingness to adhere to formulated plan of care by prescriber with patient/guardian buy-in, willingness to participate actively in plan of care and willing to take charge of own care. -Although geared for female patients, all patients/guardians are informed by prescribing provider of risks of medications that could potentially be taken by female/women within their [place] of influence and that women who use medicine during have a higher chance of having a baby with defects. -Patient/Guardian denies being and/or knowing of women who are at present and denies wanting to become in the foreseeable future, 0-6 months from now. -Patient/Guardian again informed of the risk of pharmaceutical medications consumed during and how there are potential negative effects on the developing fetus. -Patient/Guardian verbalizes understanding of rationale and physically nods head in agreement that if a should occur, to consult with provider, SHEAR GRINDER OPERATOR HELPER and/or Nurse Supervisor [employer] to determine if prescribed medications should or should not be continued. -Instructions regarding both the medical/pharmacologica l and non-pharmacologic aspects of the treatments employed were given, and the patient/guardian seemed to understand this. Risks and benefits of treatment, and of non-treatment, were also discussed. The patient/guardian understands the more frequent side effects associated with the medications. -The use of psychotherapy was addressed today and will continue on an as needed basis for the foreseeable future. The choice is, of course, ultimately left to the patient/guardian. -Patient/Guardian was encouraged to make a follow-up appointment for the next visit. -Additional treatment was discussed and has been addressed on an ongoing basis within the context of this patient's illness, resources, progress, and other appropriate factors. Being compliant with a regular exercise routine, consistent medication use, ongoing psychotherapy, eating and sleeping well, as well as the importance of handling stress, was discussed. 02/18/2024 Other May self-administer medications or be administered own oral medications per [facility] protocols. Provided informed consent with understanding of side effects, adverse effects, risks and benefits as well as alternative treatments as previously discussed and with the above recommended medications & other aspects of the treatment program. Agrees to return sooner if symptoms worsen or suicidal or homicidal ideations occur. Unable to complete AIMS due to nature of appt, denies any irregular muscle movements; would benefit from an in person appointment. Plan: -Increase Quetiapine to 50 mg QHS -Continue Lamictal 100 mg once daily -Follow up: 4 weeks [] Hard Rx handed to patient [] Rx phoned into pharmacy [x] Rx faxed/e-prescribed into pharmacy [x] PDMP Reviewed [] [employer] Reviewed [facility]: [] consider utilizing therapist/counselor/so cial worker/psychologist, referral given [x] continue with therapist/counselor/so cial worker/psychologist Psychoeducation: -Treatment options discussed in detail with patient/guardian verbalizing understanding of treatment rationales. -Side effects and benefits of all medications prescribed discussed at length between psychiatric prescribing provider and patient/guardian along with the risks associated of edpf-bl-wzej interactions, including but not limited to prescription medications, OTC medications, vitamins, minerals and herbal supplements. -Patient/Guardian and provider dialogue showcased verbalized understanding from patient on rationales of medication risk vs benefits. 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 -Reduction of stress and anxiety to aid in focus and concentration discussed, again, with patient/guardian physically nodding, voicing understanding, and engaged in treatment plan with Suyapa Peña [facility]-. -Perceiving complete understanding of rationale by patient/guardian and willingness to adhere to formulated plan of care by prescriber with patient/guardian buy-in, willingness to participate actively in plan of care and willing to take charge of own care. -Although geared for female patients, all patients/guardians are informed by prescribing provider of risks of medications that could potentially be taken by female/women within their [place] influence and that women who use medicine during have a higher chance of having a baby with defects. -Patient/Guardian denies being and/or knowing of women who are at present and denies wanting to become in the foreseeable future, 0-6 months from now. -Patient/Guardian again informed of the risk of pharmaceutical medications consumed during and how there are potential negative effects on the developing fetus. -Patient/Guardian verbalizes understanding of rationale and physically nods head in agreement that if a should occur, to consult with provider, SHEAR GRINDER OPERATOR HELPER and/or Nurse Supervisor [employer] to determine if prescribed medications should or should not be continued. -Instructions regarding both the medical/pharmacologica l and non-pharmacologic aspects of the treatments employed were given, and the patient/guardian seemed to understand this. Risks and benefits of treatment, and of non-treatment, were also discussed. The patient/guardian understands the more frequent side effects associated with the medications. -The use of psychotherapy was addressed today and will continue on an as needed basis for the foreseeable future. The choice is, of course, ultimately left to the patient/guardian. -Patient/Guardian was encouraged to make a follow-up appointment for the next visit. -Additional treatment was discussed and has been addressed on an ongoing basis within the context of this patient's illness, resources, progress, and other appropriate factors. Being compliant with a regular exercise routine, consistent medication use, ongoing psychotherapy, eating and sleeping well, as well as the importance of handling stress, was discussed. 03/17/2024 Other May self-administer medications or be administered own oral medications per [facility] protocols. Provided informed consent with understanding of side effects, adverse effects, risks and benefits as well as alternative treatments as previously discussed and with the above recommended medications & other aspects of the treatment program. Agrees to return sooner if symptoms worsen or suicidal or homicidal ideations occur. Unable to complete AIMS due to nature of appt, denies any irregular muscle movements; would benefit from an in person appointment. Plan: -Continue Quetiapine 50 mg QHS -Continue Lamictal 100 mg once daily *Patient is going to consider starting Buspirone 5 mg BID, will call if she decides she would like to. -Follow up: 3 months [] Hard Rx handed to patient [] Rx phoned into pharmacy [x] Rx faxed/e-prescribed into pharmacy [x] PDMP Reviewed [] [employer]ight Reviewed Encouraged by Suyapa Peña [facility] to: [] consider utilizing therapist/counselor/so cial worker/psychologist, referral given [x] continue with therapist/counselor/so cial worker/psychologist Psychoeducation: -Treatment options discussed in detail with patient/guardian verbalizing understanding of treatment rationales. -Side effects and benefits of all medications prescribed discussed at length between psychiatric prescribing provider and patient/guardian along with the risks associated of [id number]-[id number] interactions, including but not limited to prescription medications, OTC medications, vitamins, minerals and herbal supplements. -Patient/Guardian and provider dialogue showcased verbalized understanding from patient on rationales of medication risk vs benefits. 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 -Reduction of stress and anxiety to aid in focus and concentration discussed, again, with patient/guardian physically nodding, voicing understanding, and engaged in treatment plan with Suyapa Peña [facility]. -Perceiving complete understanding of rationale by patient/guardian and willingness to adhere to formulated plan of care by prescriber with patient/guardian buy-in, willingness to participate actively in plan of care and willing to take charge of own care. -Although geared for female patients, all patients/guardians are informed by prescribing provider of risks of medications that could potentially be taken by female/women within their [place] influence and that women who use medicine during have a higher chance of having a baby with defects. -Patient/Guardian denies being and/or knowing of women who are at present and denies wanting to become in the foreseeable future, 0-6 months from now. -Patient/Guardian again informed of the risk of pharmaceutical medications consumed during and how there are potential negative effects on the developing fetus. -Patient/Guardian verbalizes understanding of rationale and physically nods head in agreement that if a should occur, to consult with provider, SHEAR GRINDER OPERATOR HELPER and/or Nurse Supervisor [employer] to determine if prescribed medications should or should not be continued. -Instructions regarding both the medical/pharmacologica l and non-pharmacologic aspects of the treatments employed were given, and the patient/guardian seemed to understand this. Risks and benefits of treatment, and of non-treatment, were also discussed. The patient/guardian understands the more frequent side effects associated with the medications. -The use of psychotherapy was addressed today and will continue on an as needed basis for the foreseeable future. The choice is, of course, ultimately left to the patient/guardian. -Patient/Guardian was encouraged to make a follow-up appointment for the next visit. -Additional treatment was discussed and has been addressed on an ongoing basis within the context of this patient's illness, resources, progress, and other appropriate factors. Being compliant with a regular exercise routine, consistent medication use, ongoing psychotherapy, eating and sleeping well, as well as the importance of handling stress, was discussed. 06/11/2024 Other Medication Hx: -Effexor -Wellbutrin -Zoloft -Prozac -Trintellix -Celexa -Lexapro *antidepressants work for a little while then stop working. Believes she was maxed out on all these doses. -Hydroxyzine May self-administer medications or be administered own oral medications per [facility] protocols. Provided informed consent with understanding of side effects, adverse effects, risks and benefits as well as alternative treatments as previously discussed and with the above recommended medications & other aspects of the treatment program. Agrees to return sooner if symptoms worsen or suicidal or homicidal ideations occur. Plan: -Continue Quetiapine 50 mg QHS -Increase Lamotrigine to 150 mg once daily *ordered fasting labs & vitamins -Follow up: 4 weeks [] Hard Rx handed to patient [] Rx phoned into pharmacy [x] Rx faxed/e-prescribed into pharmacy [] PDMP Reviewed [] [employer]ight Reviewed Encouraged by Suyapa Peña [facility]- to: [] consider utilizing therapist/counselor/so cial worker/psychologist, referral given [x] continue with therapist/counselor/so cial worker/psychologist Psychoeducation: -Treatment options discussed in detail with patient/guardian verbalizing understanding of treatment rationales. -Side effects and benefits of all medications prescribed discussed at length between psychiatric prescribing provider and patient/guardian along with the risks associated of utww-aq-hnnr interactions, including but not limited to prescription medications, OTC medications, vitamins, minerals and herbal supplements. -Patient/Guardian and provider dialogue showcased verbalized understanding from patient on rationales of medication risk vs benefits. 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 -Reduction of stress and anxiety to aid in focus and concentration discussed, again, with patient/guardian physically nodding, voicing understanding, and engaged in treatment plan with Suyapa Peña [facility]. -Perceiving complete understanding of rationale by patient/guardian and willingness to adhere to formulated plan of care by prescriber with patient/guardian buy-in, willingness to participate actively in plan of care and willing to take charge of own care. -Although geared for female patients, all patients/guardians are informed by prescribing provider of risks of medications that could potentially be taken by female/women within their [place] influence and that women who use medicine during have a higher chance of having a baby with defects. -Patient/Guardian denies being and/or knowing of women who are at present and denies wanting to become in the foreseeable future, 0-6 months from now. -Patient/Guardian again informed of the risk of pharmaceutical medications consumed during and how there are potential negative effects on the developing fetus. -Patient/Guardian verbalizes understanding of rationale and physically nods head in agreement that if a should occur, to consult with provider, SHEAR GRINDER OPERATOR HELPER and/or Nurse Supervisor [employer] to determine if prescribed medications should or should not be continued. -Instructions regarding both the medical/pharmacologica l and non-pharmacologic aspects of the treatments employed were given, and the patient/guardian seemed to understand this. Risks and benefits of treatment, and of non-treatment, were also discussed. The patient/guardian understands the more frequent side effects associated with the medications. -The use of psychotherapy was addressed today and will continue on an as needed basis for the foreseeable future. The choice is, of course, ultimately left to the patient/guardian. -Patient/Guardian was encouraged to make a follow-up appointment for the next visit. -Additional treatment was discussed and has been addressed on an ongoing basis within the context of this patient's illness, resources, progress, and other appropriate factors. Being compliant with a regular exercise routine, consistent medication use, ongoing psychotherapy, eating and sleeping well, as well as the importance of handling stress, was discussed. 07/08/2024 Other May self-administer medications or be administered own oral medications per [facility] protocols. Provided informed consent with understanding of side effects, adverse effects, risks and benefits as well as alternative treatments as previously discussed and with the above recommended medications & other aspects of the treatment program. Agrees to return sooner if symptoms worsen or suicidal or homicidal ideations occur. Medication Hx: -Effexor -Wellbutrin -Zoloft -Prozac -Trintellix -Paxil -Celexa -Lexapro *antidepressants work for a little while then stop working. Believes she was maxed out on all these doses. -Hydroxyzine Plan: -Continue Quetiapine 50 mg QHS -Increase Lamotrigine to 200 mg once daily *labs reviewed with patient *pt needs to be seen in person by 11/2024 *labs drawn 06/2024 Treatment Plan: -Start Zoloft at next visit -Follow up: 2 weeks [] Hard Rx handed to patient [] Rx phoned into pharmacy [x] Rx faxed/e-prescribed into pharmacy [] PDMP Reviewed [] [employer]Sight Reviewed [facility] [] consider utilizing therapist/counselor/so cial worker/psychologist, referral given [x] continue with therapist/counselor/so cial worker/psychologist Psychoeducation: -Treatment options discussed in detail with patient/guardian verbalizing understanding of treatment rationales. -Side effects and benefits of all medications prescribed discussed at length between psychiatric prescribing provider and patient/guardian along with the risks associated of guis-es-ewuj interactions, including but not limited to prescription medications, OTC medications, vitamins, minerals and herbal supplements. -Patient/Guardian and provider dialogue showcased verbalized understanding from patient on rationales of medication risk vs benefits. 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 -Reduction of stress and anxiety to aid in focus and concentration discussed, again, with patient/guardian physically nodding, voicing understanding, and engaged in [facility] -Perceiving complete understanding of rationale by patient/guardian and willingness to adhere to formulated plan of care by prescriber with patient/guardian buy-in, willingness to participate actively in plan of care and willing to take charge of own care. -Although geared for female patients, all patients/guardians are informed by prescribing provider of risks of medications that could potentially be taken by female/women within their [place] influence and that women who use medicine during have a higher chance of having a baby with defects. -Patient/Guardian denies being and/or knowing of women who are at present and denies wanting to become in the foreseeable future, 0-6 months from now. -Patient/Guardian again informed of the risk of pharmaceutical medications consumed during and how there are potential negative effects on the developing fetus. -Patient/Guardian verbalizes understanding of rationale and physically nods head in agreement that if a should occur, to consult with provider, SHEAR GRINDER OPERATOR HELPER and/or Nurse Supervisor [employer] to determine if prescribed medications should or should not be continued. -Instructions regarding both the medical/pharmacologica l and non-pharmacologic aspects of the treatments employed were given, and the patient/guardian seemed to understand this. Risks and benefits of treatment, and of non-treatment, were also discussed. The patient/guardian understands the more frequent side effects associated with the medications. -The use of psychotherapy was addressed today and will continue on an as needed basis for the foreseeable future. The choice is, of course, ultimately left to the patient/guardian. -Patient/Guardian was encouraged to make a follow-up appointment for the next visit. -Additional treatment was discussed and has been addressed on an ongoing basis within the context of this patient's illness, resources, progress, and other appropriate factors. Being compliant with a regular exercise routine, consistent medication use, ongoing psychotherapy, eating and sleeping well, as well as the importance of handling stress, was discussed. 08/13/2024 Other May self-administer medications or be administered own oral medications per [facility] protocols. Provided informed consent with understanding of side effects, adverse effects, risks and benefits as well as alternative treatments as previously discussed and with the above recommended medications & other aspects of the treatment program. Agrees to return sooner if symptoms worsen or suicidal or homicidal ideations occur. Unable to complete AIMS due to nature of appt, denies any irregular muscle movements; would benefit from an in person appointment. Medication Hx: -Effexor -Wellbutrin -Zoloft -Prozac -Trintellix -Paxil -Celexa -Lexapro -Hydroxyzine *antidepressants work for a little while then stop working. Believes she was maxed out on all these doses. Plan: -Continue Quetiapine 50 mg QHS -Continue Lamotrigine 200 mg once daily Treatment Plan: -Start Zoloft? -Follow up: 2 weeks [] Hard Rx handed to patient [] Rx phoned into pharmacy [x] Rx faxed/e-prescribed into pharmacy [] PDMP Reviewed [] GeneSight Reviewed Encouraged by Suyapa Peña [facility]- to: [] consider utilizing therapist/counselor/so cial worker/psychologist, referral given [x] continue with therapist/counselor/so cial worker/psychologist Psychoeducation: -Treatment options discussed in detail with patient/guardian verbalizing understanding of treatment rationales. -Side effects and benefits of all medications prescribed discussed at length between psychiatric prescribing provider and patient/guardian along with the risks associated of mhky-zb-qstp interactions, including but not limited to prescription medications, OTC medications, vitamins, minerals and herbal supplements. -Patient/Guardian and provider dialogue showcased verbalized understanding from patient on rationales of medication risk vs benefits. 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 -Reduction of stress and anxiety to aid in focus and concentration discussed, again, with patient/guardian physically nodding, voicing understanding, and engaged in treatment plan with Suyapa Peña [facility]-. -Perceiving complete understanding of rationale by patient/guardian and willingness to adhere to formulated plan of care by prescriber with patient/guardian buy-in, willingness to participate actively in plan of care and willing to take charge of own care. -Although geared for female patients, all patients/guardians are informed by prescribing provider of risks of medications that could potentially be taken by female/women within their [place] influence and that women who use medicine during have a higher chance of having a baby with defects. -Patient/Guardian denies being and/or knowing of women who are at present and denies wanting to become in the foreseeable future, 0-6 months from now. -Patient/Guardian again informed of the risk of pharmaceutical medications consumed during and how there are potential negative effects on the developing fetus. -Patient/Guardian verbalizes understanding of rationale and physically nods head in agreement that if a should occur, to consult with provider, SHEAR GRINDER OPERATOR HELPER and/or Nurse Supervisor [employer] to determine if prescribed medications should or should not be continued. -Instructions regarding both the medical/pharmacologica l and non-pharmacologic aspects of the treatments employed were given, and the patient/guardian seemed to understand this. Risks and benefits of treatment, and of non-treatment, were also discussed. The patient/guardian understands the more frequent side effects associated with the medications. -The use of psychotherapy was addressed today and will continue on an as needed basis for the foreseeable future. The choice is, of course, ultimately left to the patient/guardian. -Patient/Guardian was encouraged to make a follow-up appointment for the next visit. -Additional treatment was discussed and has been addressed on an ongoing basis within the context of this patient's illness, resources, progress, and other appropriate factors. Being compliant with a regular exercise routine, consistent medication use, ongoing psychotherapy, eating and sleeping well, as well as the importance of handling stress, was discussed. 09/03/2024 Other May self-administer medications or be administered own oral medications per [facility] protocols. Provided informed consent with understanding of side effects, adverse effects, risks and benefits as well as alternative treatments as previously discussed and with the above recommended medications & other aspects of the treatment program. Agrees to return sooner if symptoms worsen or suicidal or homicidal ideations occur. Unable to complete AIMS due to nature of appt, denies any irregular muscle movements; would benefit from an in person appointment. Medication Hx: -Effexor -Wellbutrin -Zoloft -Prozac -Trintellix -Paxil -Celexa -Lexapro -Hydroxyzine -Quetiapine (used for insomnia and anxiety) *antidepressants work for a little while then stop working. Believes she was maxed out on all these doses. Medication Plan: -Stop Quetiapine 50 mg QHS -Continue Lamotrigine 200 mg once daily -Start Rexulti 0.5 mg QHS -Start Propranolol 10 mg BID PRN Treatment Plan: -If Rexulti is not effective, switch to Vraylar -Consider restarting Quetiapine for anxiety/insomnia if propranolol is not helpful -Follow up: 4 weeks [] Hard Rx handed to patient [] Rx phoned into pharmacy [x] Rx faxed/e-prescribed into pharmacy [] PDMP Reviewed [] GeneSight Reviewed Encouraged by Suyapa Peña [facility] to: [] consider utilizing therapist/counselor/so cial worker/psychologist, referral given [x] continue with therapist/counselor/so cial worker/psychologist Psychoeducation: -Treatment options discussed in detail with patient/guardian verbalizing understanding of treatment rationales. -Side effects and benefits of all medications prescribed discussed at length between psychiatric prescribing provider and patient/guardian along with the risks associated of bhyc-qm-jann interactions, including but not limited to prescription medications, OTC medications, vitamins, minerals and herbal supplements. -Patient/Guardian and provider dialogue showcased verbalized understanding from patient on rationales of medication risk vs benefits. 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 -Reduction of stress and anxiety to aid in focus and concentration discussed, again, with patient/guardian physically nodding, voicing understanding, and engaged in treatment plan with Suyapa Peña [facility]. -Perceiving complete understanding of rationale by patient/guardian and willingness to adhere to formulated plan of care by prescriber with patient/guardian buy-in, willingness to participate actively in plan of care and willing to take charge of own care. -Although geared for female patients, all patients/guardians are informed by prescribing provider of risks of medications that could potentially be taken by female/women within their [place] influence and that women who use medicine during have a higher chance of having a baby with defects. -Patient/Guardian denies being and/or knowing of women who are at present and denies wanting to become in the foreseeable future, 0-6 months from now. -Patient/Guardian again informed of the risk of pharmaceutical medications consumed during and how there are potential negative effects on the developing fetus. -Patient/Guardian verbalizes understanding of rationale and physically nods head in agreement that if a should occur, to consult with provider, SHEAR GRINDER OPERATOR HELPER and/or Nurse Supervisor [employer] to determine if prescribed medications should or should not be continued. -Instructions regarding both the medical/pharmacologica l and non-pharmacologic aspects of the treatments employed were given, and the patient/guardian seemed to understand this. Risks and benefits of treatment, and of non-treatment, were also discussed. The patient/guardian understands the more frequent side effects associated with the medications. -The use of psychotherapy was addressed today and will continue on an as needed basis for the foreseeable future. The choice is, of course, ultimately left to the patient/guardian. -Patient/Guardian was encouraged to make a follow-up appointment for the next visit. -Additional treatment was discussed and has been addressed on an ongoing basis within the context of this patient's illness, resources, progress, and other appropriate factors. Being compliant with a regular exercise routine, consistent medication use, ongoing psychotherapy, eating and sleeping well, as well as the importance of handling stress, was discussed. 10/21/2024 Other May self-administer medications or be administered own oral medications per [facility] protocols. Provided informed consent with understanding of side effects, adverse effects, risks and benefits as well as alternative treatments as previously discussed and with the above recommended medications & other aspects of the treatment program. Agrees to return sooner if symptoms worsen or suicidal or homicidal ideations occur. Medication Hx: -Effexor -Wellbutrin -Zoloft -Prozac -Trintellix -Paxil -Celexa -Lexapro -Hydroxyzine -Quetiapine (used for insomnia and anxiety) -Rexulti *antidepressants work for a little while then stop working. Believes she was maxed out on all these doses. Medication Plan: -Stop Quetiapine 50 mg QHS -Continue Lamotrigine 200 mg once daily -Continue Propranolol 10 mg BID PRN -Stop Rexulti 0.5 mg QHS (pt stopped d/t side effects) -Start Vraylar 1.5 mg QHS Treatment Plan: -At next visit, stop Propranolol and start Prazosin -Discussed trialing Silerton for SI, after discussing pros vs. cons patient is not interested at this time -Follow up: 2 weeks [] Hard Rx handed to patient [] Rx phoned into pharmacy [x] Rx faxed/e-prescribed into pharmacy [] PDMP Reviewed [] [employer] Reviewed Encouraged by Suyapa Peña [facility] to: [] consider utilizing therapist/counselor/so cial worker/psychologist, referral given [x] continue with therapist/counselor/so cial worker/psychologist Psychoeducation: -Treatment options discussed in detail with patient/guardian verbalizing understanding of treatment rationales. -Side effects and benefits of all medications prescribed discussed at length between psychiatric prescribing provider and patient/guardian along with the risks associated of tzxl-dq-[id number] interactions, including but not limited to prescription medications, OTC medications, vitamins, minerals and herbal supplements. -Patient/Guardian and provider dialogue showcased verbalized understanding from patient on rationales of medication risk vs benefits. 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 -Reduction of stress and anxiety to aid in focus and concentration discussed, again, with patient/guardian physically nodding, voicing understanding, and engaged in treatment plan with Suyapa Peña [facility]. -Perceiving complete understanding of rationale by patient/guardian and willingness to adhere to formulated plan of care by prescriber with patient/guardian buy-in, willingness to participate actively in plan of care and willing to take charge of own care. -Although geared for female patients, all patients/guardians are informed by prescribing provider of risks of medications that could potentially be taken by female/women within their [place] influence and that women who use medicine during have a higher chance of having a baby with defects. -Patient/Guardian denies being and/or knowing of women who are at present and denies wanting to become in the foreseeable future, 0-6 months from now. -Patient/Guardian again informed of the risk of pharmaceutical medications consumed during and how there are potential negative effects on the developing fetus. -Patient/Guardian verbalizes understanding of rationale and physically nods head in agreement that if a should occur, to consult with provider, SHEAR GRINDER OPERATOR HELPER and/or Nurse Supervisor [employer] to determine if prescribed medications should or should not be continued. -Instructions regarding both the medical/pharmacologica l and non-pharmacologic aspects of the treatments employed were given, and the patient/guardian seemed to understand this. Risks and benefits of treatment, and of non-treatment, were also discussed. The patient/guardian understands the more frequent side effects associated with the medications. -The use of psychotherapy was addressed today and will continue on an as needed basis for the foreseeable future. The choice is, of course, ultimately left to the patient/guardian. -Patient/Guardian was encouraged to make a follow-up appointment for the next visit. -Additional treatment was discussed and has been addressed on an ongoing basis within the context of this patient's illness, resources, progress, and other appropriate factors. Being compliant with a regular exercise routine, consistent medication use, ongoing psychotherapy, eating and sleeping well, as well as the importance of handling stress, was discussed. 10/30/2024 Other May self-administer medications or be administered own oral medications per [facility] protocols. Provided informed consent with understanding of side effects, adverse effects, risks and benefits as well as alternative treatments as previously discussed and with the above recommended medications & other aspects of the treatment program. Agrees to return sooner if symptoms worsen or suicidal or homicidal ideations occur. Unable to complete AIMS due to nature of appt, denies any irregular muscle movements; would benefit from an in person appointment. Medication Hx: -Effexor -Wellbutrin -Zoloft -Prozac -Trintellix -Paxil -Celexa -Lexapro -Hydroxyzine -Quetiapine (used for insomnia and anxiety-was helpful for sleep) -Rexulti *antidepressants work for a little while then stop working. Believes she was maxed out on all these doses. Medication Plan: -Continue Lamotrigine 200 mg once daily -Continue Propranolol 10 mg BID PRN -Increase Vraylar to 3 mg QHS -Restart Quetiapine 25 mg QHS PRN for insomnia Treatment Plan: -Discussed trialing Silerton for SI, after discussing pros vs. cons patient is not interested at this time. -If Vraylar 3 mg is not effective for MDD, stop and switch to different agent (Trileptal?) -Follow up: 2 weeks [] Hard Rx handed to patient [] Rx phoned into pharmacy [x] Rx faxed/e-prescribed into pharmacy [] PDMP Reviewed [] [employer] Reviewed Encouraged by Suyapa Peña [facility] to: [] consider utilizing therapist/counselor/so cial worker/psychologist, referral given [x] continue with therapist/counselor/so cial worker/psychologist Psychoeducation: -Treatment options discussed in detail with patient/guardian verbalizing understanding of treatment rationales. -Side effects and benefits of all medications prescribed discussed at length between psychiatric prescribing provider and patient/guardian along with the risks associated of bemp-cm-impp interactions, including but not limited to prescription medications, OTC medications, vitamins, minerals and herbal supplements. -Patient/Guardian and provider dialogue showcased verbalized understanding from patient on rationales of medication risk vs benefits. 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 -Reduction of stress and anxiety to aid in focus and concentration discussed, again, with patient/guardian physically nodding, voicing understanding, and engaged in treatment plan with Suyapa Peña [facility]. -Perceiving complete understanding of rationale by patient/guardian and willingness to adhere to formulated plan of care by prescriber with patient/guardian buy-in, willingness to participate actively in plan of care and willing to take charge of own care. -Although geared for female patients, all patients/guardians are informed by prescribing provider of risks of medications that could potentially be taken by female/women within their [place] and that women who use medicine during have a higher chance of having a baby with defects. -Patient/Guardian denies being and/or knowing of women who are at present and denies wanting to become in the foreseeable future, 0-6 months from now. -Patient/Guardian again informed of the risk of pharmaceutical medications consumed during and how there are potential negative effects on the developing fetus. -Patient/Guardian verbalizes understanding of rationale and physically nods head in agreement that if a should occur, to consult with provider, SHEAR GRINDER OPERATOR HELPER and/or Nurse Supervisor [employer] to determine if prescribed medications should or should not be continued. -Instructions regarding both the medical/pharmacologica l and non-pharmacologic aspects of the treatments employed were given, and the patient/guardian seemed to understand this. Risks and benefits of treatment, and of non-treatment, were also discussed. The patient/guardian understands the more frequent side effects associated with the medications. -The use of psychotherapy was addressed today and will continue on an as needed basis for the foreseeable future. The choice is, of course, ultimately left to the patient/guardian. -Patient/Guardian was encouraged to make a follow-up appointment for the next visit. -Additional treatment was discussed and has been addressed on an ongoing basis within the context of this patient's illness, resources, progress, and other appropriate factors. Being compliant with a regular exercise routine, consistent medication use, ongoing psychotherapy, eating and sleeping well, as well as the importance of handling stress, was discussed. 11/18/2024 Other May self-administer medications or be administered own oral medications per [facility] protocols. Provided informed consent with understanding of side effects, adverse effects, risks and benefits as well as alternative treatments as previously discussed and with the above recommended medications & other aspects of the treatment program. Agrees to return sooner if symptoms worsen or suicidal or homicidal ideations occur. Medication Hx: -Effexor -Wellbutrin -Zoloft -Prozac -Trintellix -Paxil -Celexa -Lexapro -Hydroxyzine -Quetiapine (used for insomnia and anxiety-was helpful for sleep) -Rexulti (not effective, caused RLS) -Vraylar (increased urination) *antidepressants work for a little while then stop working. Believes she was maxed out on all these doses. Medication Plan: -Continue Lamotrigine 200 mg once daily -Continue Propranolol 10 mg BID PRN -Decrease Vraylar to 1.5 mg QHS -Continue Quetiapine 25 mg QHS PRN for insomnia Treatment Plan: -Discussed trialing Silerton for SI, after discussing pros vs. cons patient is not interested at this time. -If Vraylar 3 mg is not effective for MDD, stop and switch to different agent (Trileptal?) -Follow up: 4 weeks [] Hard Rx handed to patient [] Rx phoned into pharmacy [x] Rx faxed/e-prescribed into pharmacy [] PDMP Reviewed [] [employer] Reviewed Encouraged by Suyapa Peña [facility] to: [] consider utilizing therapist/counselor/so cial worker/psychologist, referral given [] continue with therapist/counselor/so cial worker/psychologist Psychoeducation: -Treatment options discussed in detail with patient/guardian verbalizing understanding of treatment rationales. -Side effects and benefits of all medications prescribed discussed at length between psychiatric prescribing provider and patient/guardian along with the risks associated of yhfc-[id number]-[id number] interactions, including but not limited to prescription medications, OTC medications, vitamins, minerals and herbal supplements. -Patient/Guardian and provider dialogue showcased verbalized understanding from patient on rationales of medication risk vs benefits. 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 -Reduction of stress and anxiety to aid in focus and concentration discussed, again, with patient/guardian physically nodding, voicing understanding, and engaged in treatment plan with Suyapa Peña [facility]. -Perceiving complete understanding of rationale by patient/guardian and willingness to adhere to formulated plan of care by prescriber with patient/guardian buy-in, willingness to participate actively in plan of care and willing to take charge of own care. -Although geared for female patients, all patients/guardians are informed by prescribing provider of risks of medications that could potentially be taken by female/women within their [place] influence and that women who use medicine during have a higher chance of having a baby with defects. -Patient/Guardian denies being and/or knowing of women who are at present and denies wanting to become in the foreseeable future, 0-6 months from now. -Patient/Guardian again informed of the risk of pharmaceutical medications consumed during and how there are potential negative effects on the developing fetus. -Patient/Guardian verbalizes understanding of rationale and physically nods head in agreement that if a should occur, to consult with provider, SHEAR GRINDER OPERATOR HELPER and/or Nurse Supervisor [employer] to determine if prescribed medications should or should not be continued. -Instructions regarding both the medical/pharmacologica l and non-pharmacologic aspects of the treatments employed were given, and the patient/guardian seemed to understand this. Risks and benefits of treatment, and of non-treatment, were also discussed. The patient/guardian understands the more frequent side effects associated with the medications. -The use of psychotherapy was addressed today and will continue on an as needed basis for the foreseeable future. The choice is, of course, ultimately left to the patient/guardian. -Patient/Guardian was encouraged to make a follow-up appointment for the next visit. -Additional treatment was discussed and has been addressed on an ongoing basis within the context of this patient's illness, resources, progress, and other appropriate factors. Being compliant with a regular exercise routine, consistent medication use, ongoing psychotherapy, eating and sleeping well, as well as the importance of handling stress, was discussed. 12/23/2024 Other May self-administer medications or be administered own oral medications per [facility] protocols. Provided informed consent with understanding of side effects, adverse effects, risks and benefits as well as alternative treatments as previously discussed and with the above recommended medications & other aspects of the treatment program. Agrees to return sooner if symptoms worsen or suicidal or homicidal ideations occur. Unable to complete AIMS due to nature of appt, denies any irregular muscle movements; would benefit from an in person appointment. Medication Hx: -Effexor -Wellbutrin -Zoloft -Prozac -Trintellix -Paxil -Celexa -Lexapro -Hydroxyzine -Quetiapine (used for insomnia and anxiety-was helpful for sleep) -Rexulti (not effective, caused RLS) -Vraylar (increased urination) *antidepressants work for a little while then stop working. Believes she was maxed out on all these doses. Medication Plan: -Continue Lamotrigine 200 mg once daily -Continue Propranolol 10 mg BID PRN -Continue Vraylar 1.5 mg QHS -Continue Quetiapine 25 mg QHS PRN for insomnia *she feels like her mood is the best it is going to get while she is undergoing EMDR treatment and does not wish to make any changes at this time. Treatment Plan: -Discussed trialing Silerton for SI, after discussing pros vs. cons patient is not interested at this time. 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 -Discussed looking into CBT-I therapy and provided resources for patient to help address chronic insomnia. -Follow up: 5 weeks [] Hard Rx handed to patient [] Rx phoned into pharmacy [x] Rx faxed/e-prescribed into pharmacy [] PDMP Reviewed [] [employer] Reviewed Encouraged by Suyapa Peña [facility] to: [] consider utilizing therapist/counselor/so cial worker/psychologist, referral given [x] continue with therapist/counselor/so cial worker/psychologist Psychoeducation: -Treatment options discussed in detail with patient/guardian verbalizing understanding of treatment rationales. -Side effects and benefits of all medications prescribed discussed at length between psychiatric prescribing provider and patient/guardian along with the risks associated of [id number]-tm-[id number] interactions, including but not limited to prescription medications, OTC medications, vitamins, minerals and herbal supplements. -Patient/Guardian and provider dialogue showcased verbalized understanding from patient on rationales of medication risk vs benefits. 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 -Reduction of stress and anxiety to aid in focus and concentration discussed, again, with patient/guardian physically nodding, voicing understanding, and engaged in treatment plan with Suyapa Peña [facility]. -Perceiving complete understanding of rationale by patient/guardian and willingness to adhere to formulated plan of care by prescriber with patient/guardian buy-in, willingness to participate actively in plan of care and willing to take charge of own care. -Although geared for female patients, all patients/guardians are informed by prescribing provider of risks of medications that could potentially be taken by female/women within their [place] influence and that women who use medicine during have a higher chance of having a baby with defects. -Patient/Guardian denies being and/or knowing of women who are at present and denies wanting to become in the foreseeable future, 0-6 months from now. -Patient/Guardian again informed of the risk of pharmaceutical medications consumed during and how there are potential negative effects on the developing fetus. -Patient/Guardian verbalizes understanding of rationale and physically nods head in agreement that if a should occur, to consult with provider, SHEAR GRINDER OPERATOR HELPER and/or Nurse Supervisor [employer] to determine if prescribed medications should or should not be continued. -Instructions regarding both the medical/pharmacologica l and non-pharmacologic aspects of the treatments employed were given, and the patient/guardian seemed to understand this. Risks and benefits of treatment, and of non-treatment, were also discussed. The patient/guardian understands the more frequent side effects associated with the medications. -The use of psychotherapy was addressed today and will continue on an as needed basis for the foreseeable future. The choice is, of course, ultimately left to the patient/guardian. -Patient/Guardian was encouraged to make a follow-up appointment for the next visit. -Additional treatment was discussed and has been addressed on an ongoing basis within the context of this patient's illness, resources, progress, and other appropriate factors. Being compliant with a regular exercise routine, consistent medication use, ongoing psychotherapy, eating and sleeping well, as well as the importance of handling stress, was discussed. 01/13/2025 Other May self-administer medications or be administered own oral medications per [facility] protocols. Provided informed consent with understanding of side effects, adverse effects, risks and benefits as well as alternative treatments as previously discussed and with the above recommended medications & other aspects of the treatment program. Agrees to return sooner if symptoms worsen or suicidal or homicidal ideations occur. Unable to complete AIMS due to nature of appt, denies any irregular muscle movements; would benefit from an in person appointment. Medication Hx: -Effexor -Wellbutrin -Zoloft -Prozac -Trintellix -Paxil -Celexa -Lexapro -Hydroxyzine -Quetiapine (used for insomnia and anxiety-was helpful for sleep) -Rexulti (not effective, caused RLS) -Vraylar (increased anxiety and caused akathisia) *antidepressants work for a little while then stop working. Believes she was maxed out on all these doses. Medication Plan: -Increase Lamotrigine to 125 mg BID -Continue Propranolol 10 mg BID PRN -Stop Vraylar 1.5 mg QHS -Continue Quetiapine 25 mg QHS PRN for insomnia Treatment Plan: -Discussed trialing Silerton for SI, after discussing pros vs. cons patient is not interested at this time. 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 -Discussed looking into CBT-I therapy and provided resources for patient to help address chronic insomnia. -Follow up: 2 weeks [] Hard Rx handed to patient [] Rx phoned into pharmacy [x] Rx faxed/e-prescribed into pharmacy [] PDMP Reviewed [] [employer] Reviewed Encouraged by Suyapa Peña [facility] to: [] consider utilizing therapist/counselor/so cial worker/psychologist, referral given [x] continue with therapist/counselor/so cial worker/psychologist Psychoeducation: -Treatment options discussed in detail with patient/guardian verbalizing understanding of treatment rationales. -Side effects and benefits of all medications prescribed discussed at length between psychiatric prescribing provider and patient/guardian along with the risks associated of [id number] interactions, including but not limited to prescription medications, OTC medications, vitamins, minerals and herbal supplements. -Patient/Guardian and provider dialogue showcased verbalized understanding from patient on rationales of medication risk vs benefits. 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 -Reduction of stress and anxiety to aid in focus and concentration discussed, again, with patient/guardian physically nodding, voicing understanding, and engaged in treatment plan with Suyapa Peña [facility]. -Perceiving complete understanding of rationale by patient/guardian and willingness to adhere to formulated plan of care by prescriber with patient/guardian buy-in, willingness to participate actively in plan of care and willing to take charge of own care. -Although geared for female patients, all patients/guardians are informed by prescribing provider of risks of medications that could potentially be taken by female/women within their [place] of influence and that women who use medicine during have a higher chance of having a baby with defects. -Patient/Guardian denies being and/or knowing of women who are at present and denies wanting to become in the foreseeable future, 0-6 months from now. -Patient/Guardian again informed of the risk of pharmaceutical medications consumed during and how there are potential negative effects on the developing fetus. -Patient/Guardian verbalizes understanding of rationale and physically nods head in agreement that if a should occur, to consult with provider, SHEAR GRINDER OPERATOR HELPER and/or Nurse Supervisor [employer] to determine if prescribed medications should or should not be continued. -Instructions regarding both the medical/pharmacologica l and non-pharmacologic aspects of the treatments employed were given, and the patient/guardian seemed to understand this. Risks and benefits of treatment, and of non-treatment, were also discussed. The patient/guardian understands the more frequent side effects associated with the medications. -The use of psychotherapy was addressed today and will continue on an as needed basis for the foreseeable future. The choice is, of course, ultimately left to the patient/guardian. -Patient/Guardian was encouraged to make a follow-up appointment for the next visit. -Additional treatment was discussed and has been addressed on an ongoing basis within the context of this patient's illness, resources, progress, and other appropriate factors. Being compliant with a regular exercise routine, consistent medication use, ongoing psychotherapy, eating and sleeping well, as well as the importance of handling stress, was discussed. Plan Of Treatment No Information Insurance Providers Payer Name Payer Address Payer Phone Subscriber Number Group Number Insured Name Patient Relationship to Insured Coverage Start Date Coverage End Date [facility] [address] [id number] [phone] [id number] Kathy Barajas Self - patient is the insured 4 [employer] [facility] Claims Department [address] [address] [phone] [id number] Kathy Barajas Self - patient is the insured 4 Medical (General) History Medical History History ICD Code endometriosis depression anxiety PTSD Surgical History Surgery Date(Month/Year) wisdom teeth extraction 09/2023 Salpingectomy 06/2020 Laparoscopy 2020 Hospitalization History Reason Date(Month/Year) suicide attempt 1996
== END 2025-01-20 10:47 | disposition home or self-care (01) ==
LOC: ANHFOHIMG 10:51
PROVIDERS: Visit Provider Obstetrics & Gynecology
DX: Z12.31 Encounter for screening mammogram for malignant neoplasm of breast (principal)
CPT/HCPCS: 77063; 77067